=== PATIENT | female | born 1940 | race Two or more races ===

== ENCOUNTER 2023-05-11 13:28 | Inpatient (IN) | payer MEDICARE, MEDICAID ==
[2023-05-11] VITALS (8 sets, daily range): BP systolic 92–130; BP diastolic 57–69; PULSE 99–148; RESP 18–27; O2SAT 90–98
[~2023-05-11] VITALS: Ht 157.5 cm; Wt 62.4 kg
[2023-05-11 14:30] LABS: Base Excess -5.8 mmol/L (-2.0-2.0)
[2023-05-11 14:30] LABS: Red Cell Distribution Width 14.1 % (11.8-14.3)
[2023-05-11] MEDS ORDERED: MIDAZOLAM DRIP 50 mg/50mL 50 ML IV ONE (14:32)
[2023-05-11] MEDS ORDERED: ETOMIDATE (2MG/ML) 20ML VIAL IV ONE ×2 (14:32→14:45)
[2023-05-11 14:33] LABS: Hematocrit 43.8 % (36.0-46.0); Hemoglobin 13.9 g/dL (12.2-16.2); Mean Corpuscular Hemoglobin 27.4 pg (28.0-32.0); Mean Corpuscular Hgb Conc. 31.7 g/dL (32.0-36.0); Mean Corpuscular Volume 86.4 fL (80.0-100.0); Red Blood Cells 5.07 10^6/uL (4.0-5.20); White Blood Cell 6.3 10^3/uL (4.4-10.8)
[2023-05-11] MEDS ORDERED: ROCURONIUM 10MG/ML 10ML VIAL IV ONE ×2 (14:33→14:45)
[2023-05-11 14:37] LABS: Basophils % (manual) 0 (0.0-2.0); Blast Cells 0; Eosinophils % (manual) 0 (0-7); Promyelocytes % 0; Reactive Lymphocytes 0
[2023-05-11] MEDS: MIDAZOLAM DRIP 50 mg/50mL 50 ML IV SCH ×2 (14:45→21:33)
[2023-05-11] MEDS ORDERED: AZITHROMYCIN 500MG/ 250ML 250 ML IV ONE ×2 (14:45)
[2023-05-11] MEDS ORDERED: cefTRIAXone 1GM/50ML D5W 50 ML IV ONE ×2 (14:45)
[2023-05-11] MEDS ORDERED: SODIUM CHLORIDE 0.9% 1,000 ML IV ONE ×3 (14:45)
[2023-05-11 14:51] LABS: Alanine Aminotransferase 35 U/L (7-40); Albumin 3.5 g/dL (3.2-4.8); Alkaline Phosphatase 88 U/L (46-116); Anion Gap 16 (5-15); Aspartate Aminotransferase 58 U/L (13-40); BUN/Creatinine Ratio 16.5 (10.0-20.0); Bilirubin, Total 0.7 mg/dL (0.2-1.0); Blood Urea Nitrogen 39 mg/dL (9-23); Carbon Dioxide 20 mmol/L (20-30); Chloride 110 mmol/L (98-107); Glucose 134 mg/dL (74-106); Potassium 4.1 mmol/L (3.5-5.1); Sodium 146 mmol/L (136-145)
[2023-05-11 14:51] LABS: Lactic Acid w/Reflex 8.7 mmol/L (0.4-2.0)
[2023-05-11 14:52] LABS: Total Protein 6.4 g/dL (5.7-8.2)
[2023-05-11] MEDS: NOREPINEPHRINE 8 MG/250ML KIT 250 ML IV SCH (15:00)
[2023-05-11 15:09] LABS: INR 1.09 (0.9-1.15); Prothrombin Time 11.4 sec (9.3-11.8)
[2023-05-11 15:12] LABS: Band Neutrophils % (manual) 16; Lymphocytes % (manual) 7 (10.0-50.0); Metamyelocytes % 2; Monocytes % (manual) 3 (0-12); Myelocytes % 1
[2023-05-11 15:13] LABS: Hypochromia Slight
[2023-05-11 15:14] LABS: Platelet Estimate Adequate
[2023-05-11 15:22] LABS: Urine Epithelial Cast None Seen /hpf (<5)
[2023-05-11 15:36] LABS: Urine Bacteria MANY /hpf (None Seen); Urine Blood TRACE /uL (Negative); Urine Budding Yeast LOADED /hpf (None Seen); Urine Clarity HAZY (Clear); Urine Color Yellow (Yellow); Urine Mucus FEW (None Seen); Urine Protein, UAD 1+ (Negative); Urine Specific Gravity 1.018 (1.001-1.035); Urine Urobilinogen Normal (Negative); Urine WBC 18 /hpf (0 - 5); Urine pH 5.5 (5.0-8.0)
[2023-05-11 16:25] LABS: Base Excess -10.2 mmol/L (-2.0-2.0)
[2023-05-11] MEDS ORDERED: METOPROLOL TARTRATE 1MG/1ML-5ML VIAL IV ONE (16:30)
[2023-05-11] MEDS ORDERED: NITROGLYCERIN 0.4 MG SL TAB SL PRN (18:15)
[2023-05-11] MEDS ORDERED: MORPHINE SULFATE INJ 2 MG/ml SYRG IV PRN (18:15)
[2023-05-11] MEDS ORDERED: ONDANSETRON HCL 4 MG/2 ML VIAL IV PRN (18:15)
[2023-05-11 18:21] LABS: Base Excess -6.2 mmol/L (-2.0-2.0)
[2023-05-11] MEDS: VASOPRESSIN 20 UNITS in SODIUM CHL 0.9% 99 ML IV SCH (19:33)
[2023-05-11] MEDS: SODIUM BICARBONATE 50ML VIAL 50 ML in SOD CHL 0.45% 1,000 ML IV SCH (19:33)
[2023-05-11] MEDS: ACETAMINOPHEN 325 MG TAB PO PRN (21:29)
[2023-05-11] MEDS ORDERED: MEROPENEM 500MG IVPB 50 ML IV SCH (22:00)
[2023-05-11] MEDS: LINEZOLID 600MG/300ML 300 ML IV SCH (22:04)
[2023-05-11] MEDS: HYDROCORTISONE SOD SUCC 100 MG/2ML INJ VIAL IV SCH (22:04)
[2023-05-11] MEDS: BUDESONIDE (INHALATION) 0.5 MG/2 ML NEB NEB SCH (22:31)
[2023-05-12] VITALS (12 sets, daily range): BP systolic 81–132; BP diastolic 49–71; PULSE 106–173; RESP 20–31; O2SAT 91–97
[2023-05-12 00:57] LABS: COVID19 ANTIGEN SOFIA FIA NEGATIVE (NEGATIVE)
[2023-05-12 01:07] LABS: Rapid Influenza A Positive (Negative); Rapid Influenza B Negative (Negative)
[2023-05-12 04:47] LABS: Chloride 115 mmol/L (98-107); Potassium 3.7 mmol/L (3.5-5.1); Sodium 146 mmol/L (136-145)
[2023-05-12 04:48] LABS: Anion Gap 10 (5-15); Calcium 7.8 mg/dL (8.7-10.4); Carbon Dioxide 21 mmol/L (20-30)
[2023-05-12 04:53] LABS: Blood Urea Nitrogen 32 mg/dL (9-23); Glucose 124 mg/dL (74-106)
[2023-05-12] MEDS ORDERED: SODIUM BICARBONATE 8.4 % INJ 50ML VIAL IV ONE (04:53)
[2023-05-12 05:07] LABS: Hematocrit 41.9 % (36.0-46.0); Hemoglobin 13.3 g/dL (12.2-16.2); Mean Corpuscular Hemoglobin 27.3 pg (28.0-32.0); Mean Corpuscular Hgb Conc. 31.7 g/dL (32.0-36.0); Mean Corpuscular Volume 86.2 fL (80.0-100.0); Red Blood Cells 4.86 10^6/uL (4.0-5.20); White Blood Cell 5.9 10^3/uL (4.4-10.8)
[2023-05-12] MEDS: SODIUM BICARBONATE 50ML VIAL 50 ML in SOD CHL 0.45% 1,000 ML IV SCH (05:31)
[2023-05-12 05:34] LABS: Basophils % (manual) 0 (0.0-2.0); Blast Cells 0; Eosinophils % (manual) 0 (0-7); Myelocytes % 0; Promyelocytes % 0; Reactive Lymphocytes 0
[2023-05-12] MEDS: IPRATROPIUM BROM 0.5 MG/2.5ML INH SOL NEB SCH ×3 (05:35→19:03)
[2023-05-12] MEDS: VASOPRESSIN 20 UNITS in SODIUM CHL 0.9% 99 ML IV SCH ×2 (05:37→15:04)
[2023-05-12] MEDS ORDERED: dilTIAZem 25 MG/5 ML VIAL IV ONE ×2 (05:41→05:45)
[2023-05-12] MEDS: NOREPINEPHRINE 8 MG/250ML KIT 250 ML IV SCH ×2 (05:49→18:21)
[2023-05-12] MEDS: MIDAZOLAM DRIP 50 mg/50mL 50 ML IV SCH ×3 (05:50→18:21)
[2023-05-12] MEDS ORDERED: ALBUTEROL SULF 2.5 MG/0.5ML(0.5%) NEB SOLN NEB SCH (06:00)
[2023-05-12] MEDS ORDERED: dilTIAZem 125mg/125ml BAG KIT 125 ML IV ONE (06:12)
[2023-05-12] MEDS ORDERED: dilTIAZem 125mg/125ml BAG KIT 125 ML IV SCH (06:15)
[2023-05-12 07:43] LABS: Base Excess -2.7 mmol/L (-2.0-2.0)
[2023-05-12] MEDS ORDERED: fentaNYL Drip 2500mCg/250mlNS 250 ML IV ONE (08:12)
[2023-05-12 08:28] LABS: Band Neutrophils % (manual) 12; Lymphocytes % (manual) 7 (10.0-50.0); Metamyelocytes % 1; Monocytes % (manual) 3 (0-12); Platelet Estimate Adequate
[2023-05-12 08:29] LABS: Hypochromia Slight
[2023-05-12] MEDS: fentaNYL Drip 2500mCg/250mlNS 250 ML IV SCH ×2 (08:30→22:33)
[2023-05-12] MEDS ORDERED: AMIODARONE BOLUS KIT 100 ML IV ONE (08:45)
[2023-05-12] MEDS ORDERED: AMIODARONE 450mg/250ml AE 250 ML IV SCH (09:00)
[2023-05-12] MEDS: LACTATED RINGER'S 1,000 ML IV SCH ×2 (10:03→22:13)
[2023-05-12] MEDS: HYDROCORTISONE SOD SUCC 100 MG/2ML INJ VIAL IV SCH ×2 (10:33→22:14)
[2023-05-12] MEDS: LINEZOLID 600MG/300ML 300 ML IV SCH ×2 (10:36→22:14)
[2023-05-12] MEDS: LEVALBUTEROL HCL 1.25 MG/3 ML NEB NEB SCH ×2 (11:21→19:03)
[2023-05-12] MEDS: BUDESONIDE (INHALATION) 0.5 MG/2 ML NEB NEB SCH ×2 (11:21→19:03)
[2023-05-12] MEDS ORDERED: MEROPENEM 500MG IVPB 50 ML IV SCH (12:00)
[2023-05-12] MEDS: MEROPENEM 1GM IVPB 100 ML IV SCH (12:47)
[2023-05-12] MEDS: ASPirin 81 mg TAB PO SCH (14:14)
[2023-05-12 14:46] LABS: Magnesium 1.7 mg/dL (1.6-2.6)
[2023-05-12] MEDS: AMIODARONE 450mg/250ml AE 250 ML IV SCH ×2 (15:03→22:12)
[2023-05-12] MEDS: ACETAMINOPHEN 325 MG TAB PO PRN (22:56)
[2023-05-13] VITALS (30 sets, daily range): BP systolic 80–130; BP diastolic 51–73; PULSE 102–138; RESP 20–22; TEMP 98.2–99.1; O2SAT 96–100
[2023-05-13] MEDS: MEROPENEM 1GM IVPB 100 ML IV SCH ×2 (00:41→11:52)
[2023-05-13] MEDS: IPRATROPIUM BROM 0.5 MG/2.5ML INH SOL NEB SCH ×4 (02:40→21:18)
[2023-05-13] MEDS: LEVALBUTEROL HCL 1.25 MG/3 ML NEB NEB SCH ×4 (02:40→21:18)
[2023-05-13] MEDS: VASOPRESSIN 20 UNITS in SODIUM CHL 0.9% 99 ML IV SCH ×2 (03:51→12:18)
[2023-05-13 04:24] LABS: Hematocrit 37.5 % (36.0-46.0); Mean Corpuscular Hemoglobin 27.3 pg (28.0-32.0); Mean Corpuscular Volume 85.2 fL (80.0-100.0); Red Cell Distribution Width 14.3 % (11.8-14.3); White Blood Cell 10.6 10^3/uL (4.4-10.8)
[2023-05-13 04:33] LABS: Anion Gap 9 (5-15); Carbon Dioxide 24 mmol/L (20-30); Chloride 109 mmol/L (98-107); Potassium 3.9 mmol/L (3.5-5.1); Sodium 142 mmol/L (136-145)
[2023-05-13 04:39] LABS: BUN/Creatinine Ratio 27.9 (10.0-20.0); Blood Urea Nitrogen 31 mg/dL (9-23); Glucose 137 mg/dL (74-106)
[2023-05-13 04:43] LABS: Basophils % (manual) 0 (0.0-2.0); Blast Cells 0; Eosinophils % (manual) 0 (0-7); Metamyelocytes % 0; Myelocytes % 0; Promyelocytes % 0; Reactive Lymphocytes 0
[2023-05-13] MEDS: LACTATED RINGER'S 1,000 ML IV SCH ×4 (04:45→21:06)
[2023-05-13] MEDS: BUDESONIDE (INHALATION) 0.5 MG/2 ML NEB NEB SCH ×2 (05:51→21:18)
[2023-05-13] MEDS: MIDAZOLAM DRIP 50 mg/50mL 50 ML IV SCH ×2 (06:08→16:07)
[2023-05-13 06:09] LABS: Base Excess -2.5 mmol/L (-2.0-2.0)
[2023-05-13 09:15] LABS: Band Neutrophils % (manual) 8; Lymphocytes % (manual) 2 (10.0-50.0); Monocytes % (manual) 2 (0-12)
[2023-05-13 09:16] LABS: Platelet Estimate Adequate
[2023-05-13] MEDS: ASPirin 81 mg TAB PO SCH (09:47)
[2023-05-13] MEDS: HYDROCORTISONE SOD SUCC 100 MG/2ML INJ VIAL IV SCH ×2 (09:47→22:14)
[2023-05-13] MEDS: LINEZOLID 600MG/300ML 300 ML IV SCH ×2 (09:47→22:16)
[2023-05-13] MEDS: AMIODARONE 450mg/250ml AE 250 ML IV SCH (09:48)
[2023-05-13] MEDS: NOREPINEPHRINE 8 MG/250ML KIT 250 ML IV SCH (09:48)
[2023-05-13] MEDS: Jevity 1.2 Cal/Fiber 1 Liter GT SCH (15:50)
[2023-05-13] MEDS: MAGNESIUM SULFATE 1GM/100ML 100 ML IV SCH ×2 (16:28→17:10)
[2023-05-13] MEDS: POTASSIUM CHL 20MEQ/100ML 100 ML IV SCH ×2 (16:28→18:31)
[2023-05-13] MEDS: FREE WATER GT SCH ×2 (18:07→23:38)
[2023-05-13] MEDS ORDERED: OSELTAMIVIR 75 MG CAP PO ONE (22:00)
[2023-05-13] MEDS: fentaNYL Drip 2500mCg/250mlNS 250 ML IV SCH (23:36)
[2023-05-14] VITALS (105 sets, daily range): BP systolic 87–141; BP diastolic 49–82; PULSE 87–133; RESP 17–26; TEMP 98.1–99; O2SAT 95–99
[2023-05-14] MEDS: LEVALBUTEROL HCL 1.25 MG/3 ML NEB NEB SCH ×4 (00:29→18:25)
[2023-05-14] MEDS: AMIODARONE 450mg/250ml AE 250 ML IV SCH ×2 (01:01→16:23)
[2023-05-14] MEDS: VASOPRESSIN 20 UNITS in SODIUM CHL 0.9% 99 ML IV SCH ×3 (02:05→23:55)
[2023-05-14 04:11] LABS: Hemoglobin 11.4 g/dL (12.2-16.2); Red Cell Distribution Width 14.3 % (11.8-14.3)
[2023-05-14 04:14] LABS: Hematocrit 35.6 % (36.0-46.0); Mean Corpuscular Hemoglobin 26.7 pg (28.0-32.0); Mean Corpuscular Volume 83.5 fL (80.0-100.0); Red Blood Cells 4.26 10^6/uL (4.0-5.20); White Blood Cell 15.4 10^3/uL (4.4-10.8)
[2023-05-14] MEDS: MIDAZOLAM DRIP 50 mg/50mL 50 ML IV SCH ×2 (04:25→13:01)
[2023-05-14 04:29] LABS: Anion Gap 8 (5-15); Calcium 8.3 mg/dL (8.7-10.4); Carbon Dioxide 24 mmol/L (20-30); Chloride 108 mmol/L (98-107); Potassium 4.7 mmol/L (3.5-5.1); Sodium 140 mmol/L (136-145)
[2023-05-14 04:35] LABS: BUN/Creatinine Ratio 30.4 (10.0-20.0); Blood Urea Nitrogen 28 mg/dL (9-23); Glucose 162 mg/dL (74-106); Magnesium 2.3 mg/dL (1.6-2.6)
[2023-05-14 04:52] LABS: Band Neutrophils % (manual) 0; Basophils % (manual) 0 (0.0-2.0); Blast Cells 0; Eosinophils % (manual) 0 (0-7); Lymphocytes % (manual) 0 (10.0-50.0); Metamyelocytes % 0; Myelocytes % 0; Promyelocytes % 0; Reactive Lymphocytes 0
[2023-05-14] MEDS: FREE WATER GT SCH (05:45)
[2023-05-14] MEDS: BUDESONIDE (INHALATION) 0.5 MG/2 ML NEB NEB SCH ×2 (06:25→18:25)
[2023-05-14] MEDS: IPRATROPIUM BROM 0.5 MG/2.5ML INH SOL NEB SCH ×3 (06:25→18:25)
[2023-05-14 08:06] LABS: Base Excess -2.5 mmol/L (-2.0-2.0)
[2023-05-14] MEDS: ASPirin 81 mg TAB PO SCH (09:11)
[2023-05-14] MEDS: LINEZOLID 600MG/300ML 300 ML IV SCH (09:11)
[2023-05-14] MEDS: OSELTAMIVIR 30 MG CAP PO SCH ×2 (09:11→22:27)
[2023-05-14] MEDS: HYDROCORTISONE SOD SUCC 100 MG/2ML INJ VIAL IV SCH (09:12)
[2023-05-14 09:28] LABS: Monocytes % (manual) 1 (0-12); Platelet Estimate Adequate
[2023-05-14] MEDS: NOREPINEPHRINE 8 MG/250ML KIT 250 ML IV SCH (15:00)
[2023-05-14] MEDS ORDERED: VANCOMYCIN PER PHARMACY 0 MG IV SCH (16:00)
[2023-05-14] MEDS ORDERED: CEFTRIAXONE SODIUM 2 GM in D5W 5% 100 ML IV ONE (16:00)
[2023-05-14] MEDS ORDERED: PANTOPRAZOLE 40 MG/10 ML VIAL INJ IV ONE (16:15)
[2023-05-14] MEDS ORDERED: VANCOMYCIN 1GM/200ML 200 ML IV ONE (16:15)
[2023-05-14] MEDS: MUPIROCIN 2% OINT 15gm or 22gm FOR MRSA NARES EACHNOSTRI SCH (22:26)
[2023-05-14] MEDS: LACTATED RINGER'S 1,000 ML IV SCH (22:27)
[2023-05-15] VITALS (93 sets, daily range): BP systolic 72–154; BP diastolic 45–93; PULSE 79–103; RESP 15–28; TEMP 97–100; O2SAT 92–100
[2023-05-15] MEDS: LEVALBUTEROL HCL 1.25 MG/3 ML NEB NEB SCH ×5 (00:09→23:45)
[2023-05-15] MEDS: IPRATROPIUM BROM 0.5 MG/2.5ML INH SOL NEB SCH ×4 (00:10→23:45)
[2023-05-15] MEDS: fentaNYL Drip 2500mCg/250mlNS 250 ML IV SCH ×2 (01:30→22:43)
[2023-05-15] MEDS: MIDAZOLAM DRIP 50 mg/50mL 50 ML IV SCH (04:15)
[2023-05-15 04:21] LABS: Chloride 109 mmol/L (98-107); Potassium 4.9 mmol/L (3.5-5.1); Sodium 141 mmol/L (136-145)
[2023-05-15 04:22] LABS: Anion Gap 7 (5-15); Calcium 8.5 mg/dL (8.7-10.4); Carbon Dioxide 25 mmol/L (20-30)
[2023-05-15 04:27] LABS: Hematocrit 35.2 % (36.0-46.0); Hemoglobin 11.1 g/dL (12.2-16.2); Mean Corpuscular Hemoglobin 26.6 pg (28.0-32.0); Mean Corpuscular Hgb Conc. 31.6 g/dL (32.0-36.0); Mean Corpuscular Volume 84.1 fL (80.0-100.0); Red Blood Cells 4.18 10^6/uL (4.0-5.20); Red Cell Distribution Width 14.7 % (11.8-14.3); White Blood Cell 18.1 10^3/uL (4.4-10.8)
[2023-05-15 04:28] LABS: BUN/Creatinine Ratio 35.2 (10.0-20.0); Blood Urea Nitrogen 25 mg/dL (9-23); Glucose 148 mg/dL (74-106)
[2023-05-15 04:29] LABS: Basophils % (manual) 0 (0.0-2.0); Blast Cells 0; Eosinophils % (manual) 0 (0-7); Metamyelocytes % 0; Myelocytes % 0; Promyelocytes % 0; Reactive Lymphocytes 0
[2023-05-15] MEDS: BUDESONIDE (INHALATION) 0.5 MG/2 ML NEB NEB SCH ×2 (06:30→18:28)
[2023-05-15 07:01] LABS: Band Neutrophils % (manual) 6; Lymphocytes % (manual) 2 (10.0-50.0); Monocytes % (manual) 1 (0-12)
[2023-05-15 07:02] LABS: Platelet Estimate Adequate; RBC Morphology Normal
[2023-05-15 07:39] LABS: Base Excess 0.2 mmol/L (-2.0-2.0)
[2023-05-15] MEDS ORDERED: VANCOMYCIN 1GM/200ML 200 ML IV SCH ×2 (08:00→14:30)
[2023-05-15] MEDS: PANTOPRAZOLE 40 MG/10 ML VIAL INJ IV SCH (08:45)
[2023-05-15] MEDS: MUPIROCIN 2% OINT 15gm or 22gm FOR MRSA NARES EACHNOSTRI SCH ×2 (09:07→21:19)
[2023-05-15] MEDS: OSELTAMIVIR 30 MG CAP PO SCH ×2 (09:09→21:03)
[2023-05-15] MEDS: AMIODARONE HCL 200 MG TAB PO SCH ×2 (09:10→21:03)
[2023-05-15] MEDS ORDERED: CEFTRIAXONE SODIUM 2 GM in D5W 5% 100 ML IV SCH (10:00)
[2023-05-15] MEDS ORDERED: ENOXAPARIN SOD 30 MG/0.3 ML SYRINGE SC SCH (10:00)
[2023-05-15] MEDS ORDERED: CEFEPIME 1GM/ 50ML 50 ML IV SCH (11:00)
[2023-05-15] MEDS: CEFEPIME 1GM/ 50ML 50 ML IV SCH ×2 (14:00→21:05)
[2023-05-15] MEDS: LACTATED RINGER'S 1,000 ML IV SCH (15:00)
[2023-05-15] MEDS: NOREPINEPHRINE 8 MG/250ML KIT 250 ML IV SCH (15:00)
[2023-05-15] MEDS: ENOXAPARIN SOD 60 MG/0.6 ML SYRINGE SC SCH (21:02)
[2023-05-15] MEDS: VANCOMYCIN 1GM/200ML 200 ML IV SCH (21:03)
[2023-05-15] MEDS: VASOPRESSIN 20 UNITS in SODIUM CHL 0.9% 99 ML IV SCH (22:33)
[2023-05-16] VITALS (107 sets, daily range): BP systolic 84–135; BP diastolic 47–70; PULSE 92–109; RESP 16–28; TEMP 98.4–99.9; O2SAT 6–100
[2023-05-16] MEDS: MIDAZOLAM DRIP 50 mg/50mL 50 ML IV SCH ×2 (01:50→09:44)
[2023-05-16] MEDS: CEFEPIME 1GM/ 50ML 50 ML IV SCH ×3 (06:06→21:02)
[2023-05-16 07:09] LABS: Chloride 111 mmol/L (98-107); Potassium 4.7 mmol/L (3.5-5.1); Sodium 143 mmol/L (136-145)
[2023-05-16 07:10] LABS: Anion Gap 3 (5-15); Calcium 8.5 mg/dL (8.7-10.4); Carbon Dioxide 29 mmol/L (20-30)
[2023-05-16 07:14] LABS: Hematocrit 35.1 % (36.0-46.0); Hemoglobin 11.2 g/dL (12.2-16.2); Mean Corpuscular Volume 84.5 fL (80.0-100.0); Red Blood Cells 4.16 10^6/uL (4.0-5.20); Red Cell Distribution Width 14.7 % (11.8-14.3)
[2023-05-16 07:15] LABS: BUN/Creatinine Ratio 32.8 (10.0-20.0); Blood Urea Nitrogen 20 mg/dL (9-23); Glucose 98 mg/dL (74-106)
[2023-05-16 07:24] LABS: Basophils % (manual) 0 (0.0-2.0); Blast Cells 0; Eosinophils % (manual) 0 (0-7); Metamyelocytes % 0; Myelocytes % 0; Promyelocytes % 0; Reactive Lymphocytes 0
[2023-05-16] MEDS: LACTATED RINGER'S 1,000 ML IV SCH (07:40)
[2023-05-16] MEDS: IPRATROPIUM BROM 0.5 MG/2.5ML INH SOL NEB SCH ×4 (07:40→23:55)
[2023-05-16] MEDS: BUDESONIDE (INHALATION) 0.5 MG/2 ML NEB NEB SCH ×2 (07:40→18:01)
[2023-05-16] MEDS: LEVALBUTEROL HCL 1.25 MG/3 ML NEB NEB SCH ×4 (07:40→23:55)
[2023-05-16] MEDS: VANCOMYCIN 1GM/200ML 200 ML IV SCH ×2 (08:09→20:00)
[2023-05-16] MEDS: NOREPINEPHRINE 8 MG/250ML KIT 250 ML IV SCH (08:34)
[2023-05-16 08:58] LABS: Base Excess -0.9 mmol/L (-2.0-2.0)
[2023-05-16 09:33] LABS: Band Neutrophils % (manual) 20; Lymphocytes % (manual) 7 (10.0-50.0); Monocytes % (manual) 4 (0-12); Platelet Estimate Adequate
[2023-05-16] MEDS: VASOPRESSIN 20 UNITS in SODIUM CHL 0.9% 99 ML IV SCH ×2 (09:40→20:47)
[2023-05-16] MEDS: PANTOPRAZOLE 40 MG/10 ML VIAL INJ IV SCH (10:15)
[2023-05-16] MEDS: ENOXAPARIN SOD 60 MG/0.6 ML SYRINGE SC SCH ×2 (10:15→21:03)
[2023-05-16] MEDS: AMIODARONE HCL 200 MG TAB PO SCH ×2 (10:16→21:03)
[2023-05-16] MEDS: OSELTAMIVIR 30 MG CAP PO SCH ×2 (10:16→21:02)
[2023-05-16] MEDS: MUPIROCIN 2% OINT 15gm or 22gm FOR MRSA NARES EACHNOSTRI SCH ×2 (10:18→21:02)
[2023-05-16] MEDS: fentaNYL Drip 2500mCg/250mlNS 250 ML IV SCH (12:23)
[2023-05-16 13:50] LABS: INR 1.07 (0.9-1.15); Prothrombin Time 11.2 sec (9.3-11.8)
[2023-05-16] MEDS: FLUCONAZOLE 200MG/100ML 100 ML IV SCH (21:01)
[2023-05-17] VITALS (103 sets, daily range): BP systolic 85–136; BP diastolic 39–69; PULSE 75–114; RESP 20–29; TEMP 98.6–100; O2SAT 89–100
[2023-05-17 04:12] LABS: Basophils # (auto) 0 10 ^3/uL (0-0.2); Eosinophils # (auto) 0.1 10 ^3/uL (0-0.8); Eosinophils % (auto) 0.4 % (0.0-7.0); Hemoglobin 10.4 g/dL (12.2-16.2); Lymphocytes # (auto) 0.4 10 ^3/uL (0.4-5.4); Monocytes # (auto) 0.4 10 ^3/uL (0-1.3); Nucleated Red Blood Cells % 0.1 %
[2023-05-17 04:15] LABS: Lymphocytes % (auto) 3.3 % (10.0-50.0); Mean Corpuscular Hemoglobin 26.8 pg (28.0-32.0); Mean Corpuscular Hgb Conc. 32.3 g/dL (32.0-36.0); Mean Corpuscular Volume 82.9 fL (80.0-100.0); Neutrophils # (auto) 11.7 10 ^3/uL (1.6-8.6); Neutrophils % (auto) 93.3 % (37.0-80.0); Red Blood Cells 3.86 10^6/uL (4.0-5.20); Red Cell Distribution Width 14.1 % (11.8-14.3); White Blood Cell 12.5 10^3/uL (4.4-10.8)
[2023-05-17 04:25] LABS: Chloride 112 mmol/L (98-107); Potassium 4.6 mmol/L (3.5-5.1); Sodium 145 mmol/L (136-145)
[2023-05-17 04:26] LABS: Anion Gap 5 (5-15); Calcium 8.2 mg/dL (8.7-10.4); Carbon Dioxide 28 mmol/L (20-30)
[2023-05-17 04:31] LABS: BUN/Creatinine Ratio 39.6 (10.0-20.0); Blood Urea Nitrogen 19 mg/dL (9-23); Glucose 161 mg/dL (74-106)
[2023-05-17] MEDS: Jevity 1.2 Cal/Fiber 1 Liter GT SCH (05:53)
[2023-05-17] MEDS: CEFEPIME 1GM/ 50ML 50 ML IV SCH ×3 (05:53→22:01)
[2023-05-17] MEDS: BUDESONIDE (INHALATION) 0.5 MG/2 ML NEB NEB SCH ×2 (07:01→18:53)
[2023-05-17] MEDS: LEVALBUTEROL HCL 1.25 MG/3 ML NEB NEB SCH ×3 (07:01→18:53)
[2023-05-17] MEDS: IPRATROPIUM BROM 0.5 MG/2.5ML INH SOL NEB SCH ×3 (07:01→18:53)
[2023-05-17] MEDS: VASOPRESSIN 20 UNITS in SODIUM CHL 0.9% 99 ML IV SCH ×2 (07:54→19:01)
[2023-05-17] MEDS: MIDAZOLAM DRIP 50 mg/50mL 50 ML IV SCH ×3 (09:04→21:01)
[2023-05-17] MEDS: PANTOPRAZOLE 40 MG/10 ML VIAL INJ IV SCH (11:06)
[2023-05-17] MEDS: OSELTAMIVIR 30 MG CAP PO SCH ×2 (11:07→22:01)
[2023-05-17] MEDS: ENOXAPARIN SOD 60 MG/0.6 ML SYRINGE SC SCH ×2 (11:07→22:01)
[2023-05-17] MEDS: AMIODARONE HCL 200 MG TAB PO SCH ×2 (11:08→22:01)
[2023-05-17] MEDS: FLUCONAZOLE 200MG/100ML 100 ML IV SCH (11:09)
[2023-05-17] MEDS: MUPIROCIN 2% OINT 15gm or 22gm FOR MRSA NARES EACHNOSTRI SCH ×2 (11:11→22:03)
[2023-05-17] MEDS ORDERED: LIDOCAINE 1% (LOCAL ANESTH.) PF 5ml SDV ID ONE (12:00)
[2023-05-17] MEDS: NOREPINEPHRINE 8 MG/250ML KIT 250 ML IV SCH (12:48)
[2023-05-17] MEDS: VANCOMYCIN 1GM/200ML 200 ML IV SCH (12:49)
[2023-05-17] MEDS: fentaNYL Drip 2500mCg/250mlNS 250 ML IV SCH (13:00)
[2023-05-17] MEDS: SODIUM CHLOR 0.9% PF (SALINE LOCK) 10ML VIAL/SYR IV SCH (22:01)
[2023-05-18] VITALS (106 sets, daily range): BP systolic 88–131; BP diastolic 46–71; PULSE 92–118; RESP 25–33; TEMP 97.5–99.3; O2SAT 87–100
[2023-05-18] MEDS: IPRATROPIUM BROM 0.5 MG/2.5ML INH SOL NEB SCH ×4 (01:18→18:22)
[2023-05-18] MEDS: LEVALBUTEROL HCL 1.25 MG/3 ML NEB NEB SCH ×4 (01:19→18:22)
[2023-05-18] MEDS: fentaNYL Drip 2500mCg/250mlNS 250 ML IV SCH ×2 (02:23→12:21)
[2023-05-18 03:55] LABS: Basophils # (auto) 0 10 ^3/uL (0-0.2); Eosinophils # (auto) 0.1 10 ^3/uL (0-0.8); Hematocrit 31.3 % (36.0-46.0); Mean Corpuscular Volume 83.3 fL (80.0-100.0)
[2023-05-18 03:57] LABS: Eosinophils % (auto) 0.7 % (0.0-7.0); Hemoglobin 9.9 g/dL (12.2-16.2); Lymphocytes # (auto) 0.6 10 ^3/uL (0.4-5.4); Lymphocytes % (auto) 3.9 % (10.0-50.0); Mean Corpuscular Hemoglobin 26.5 pg (28.0-32.0); Mean Corpuscular Hgb Conc. 31.8 g/dL (32.0-36.0); Monocytes # (auto) 0.5 10 ^3/uL (0-1.3); Monocytes % (auto) 3.2 % (0.0-12.0); Neutrophils % (auto) 92.2 % (37.0-80.0); Nucleated Red Blood Cells % 0.1 %; Red Blood Cells 3.75 10^6/uL (4.0-5.20); Red Cell Distribution Width 14.2 % (11.8-14.3); White Blood Cell 14.1 10^3/uL (4.4-10.8)
[2023-05-18 04:12] LABS: Alanine Aminotransferase 61 U/L (7-40); Albumin 2.2 g/dL (3.2-4.8); Alkaline Phosphatase 192 U/L (46-116); Anion Gap 4 (5-15); Aspartate Aminotransferase 52 U/L (13-40); BUN/Creatinine Ratio 39.5 (10.0-20.0); Bilirubin, Total 0.5 mg/dL (0.2-1.0); Blood Urea Nitrogen 15 mg/dL (9-23); Calcium 8.1 mg/dL (8.7-10.4); Carbon Dioxide 30 mmol/L (20-30); Chloride 111 mmol/L (98-107); Glucose 91 mg/dL (74-106); Potassium 4.3 mmol/L (3.5-5.1); Sodium 145 mmol/L (136-145); Total Protein 4.6 g/dL (5.7-8.2)
[2023-05-18] MEDS: VANCOMYCIN 1GM/200ML 200 ML IV SCH ×2 (05:30→21:26)
[2023-05-18] MEDS: CEFEPIME 1GM/ 50ML 50 ML IV SCH ×3 (06:00→21:26)
[2023-05-18] MEDS: VASOPRESSIN 20 UNITS in SODIUM CHL 0.9% 99 ML IV SCH ×2 (06:08→16:04)
[2023-05-18] MEDS: MIDAZOLAM DRIP 50 mg/50mL 50 ML IV SCH ×2 (06:35→12:20)
[2023-05-18] MEDS: BUDESONIDE (INHALATION) 0.5 MG/2 ML NEB NEB SCH ×2 (06:52→18:22)
[2023-05-18 07:49] LABS: Base Excess 4.6 mmol/L (-2.0-2.0)
[2023-05-18] MEDS: SODIUM CHLOR 0.9% PF (SALINE LOCK) 10ML VIAL/SYR IV SCH ×2 (10:00→21:14)
[2023-05-18] MEDS: OSELTAMIVIR 30 MG CAP PO SCH (10:32)
[2023-05-18] MEDS: MUPIROCIN 2% OINT 15gm or 22gm FOR MRSA NARES EACHNOSTRI SCH ×2 (10:33→21:14)
[2023-05-18] MEDS: AMIODARONE HCL 200 MG TAB PO SCH ×2 (10:33→21:26)
[2023-05-18] MEDS: ENOXAPARIN SOD 60 MG/0.6 ML SYRINGE SC SCH ×2 (10:33→21:26)
[2023-05-18] MEDS: PANTOPRAZOLE 40 MG/10 ML VIAL INJ IV SCH (10:33)
[2023-05-18] MEDS: FLUCONAZOLE 200MG/100ML 100 ML IV SCH (10:34)
[2023-05-18] MEDS ORDERED: IPRATROPIUM BROM 0.5 MG/2.5ML INH SOL NEB ONE (14:30)
[2023-05-18] MEDS ORDERED: FUROSEMIDE 40 MG/4 ML VIAL IV ONE (14:30)
[2023-05-18] MEDS ORDERED: LEVALBUTEROL HCL 1.25 MG/3 ML NEB NEB ONE (14:30)
[2023-05-18] MEDS: NOREPINEPHRINE 8 MG/250ML KIT 250 ML IV SCH (15:00)
[2023-05-18] MEDS: PROPOFOL 100 ML IV SCH (16:30)
[2023-05-19] VITALS (108 sets, daily range): BP systolic 59–149; BP diastolic 35–77; PULSE 102–120; RESP 26; TEMP 96.8–99; O2SAT 94–100
[2023-05-19] MEDS: IPRATROPIUM BROM 0.5 MG/2.5ML INH SOL NEB SCH ×4 (00:10→18:52)
[2023-05-19] MEDS: LEVALBUTEROL HCL 1.25 MG/3 ML NEB NEB SCH ×4 (00:10→18:52)
[2023-05-19] MEDS: VASOPRESSIN 20 UNITS in SODIUM CHL 0.9% 99 ML IV SCH ×2 (01:26→15:29)
[2023-05-19 03:05] LABS: Basophils # (auto) 0 10 ^3/uL (0-0.2); Basophils % (auto) 0.2 % (0.0-2.0); Hemoglobin 9.6 g/dL (12.2-16.2); Neutrophils # (auto) 15.9 10 ^3/uL (1.6-8.6)
[2023-05-19 03:07] LABS: Eosinophils # (auto) 0.1 10 ^3/uL (0-0.8); Eosinophils % (auto) 0.7 % (0.0-7.0); Hematocrit 30.4 % (36.0-46.0); Lymphocytes # (auto) 0.9 10 ^3/uL (0.4-5.4); Lymphocytes % (auto) 4.8 % (10.0-50.0); Mean Corpuscular Hemoglobin 26.1 pg (28.0-32.0); Mean Corpuscular Hgb Conc. 31.6 g/dL (32.0-36.0); Mean Corpuscular Volume 82.7 fL (80.0-100.0); Monocytes # (auto) 0.7 10 ^3/uL (0-1.3); Neutrophils % (auto) 90.3 % (37.0-80.0); Nucleated Red Blood Cells % 0.3 %; Red Blood Cells 3.67 10^6/uL (4.0-5.20); White Blood Cell 17.6 10^3/uL (4.4-10.8)
[2023-05-19 03:23] LABS: Alanine Aminotransferase 52 U/L (7-40); Albumin 2.3 g/dL (3.2-4.8); Alkaline Phosphatase 168 U/L (46-116); Anion Gap 8 (5-15); Aspartate Aminotransferase 38 U/L (13-40); BUN/Creatinine Ratio 34.8 (10.0-20.0); Blood Urea Nitrogen 16 mg/dL (9-23); Carbon Dioxide 27 mmol/L (20-30); Chloride 109 mmol/L (98-107); Glucose 97 mg/dL (74-106); Potassium 3.8 mmol/L (3.5-5.1); Sodium 144 mmol/L (136-145)
[2023-05-19 03:24] LABS: Bilirubin, Total 0.5 mg/dL (0.2-1.0); Total Protein 4.9 g/dL (5.7-8.2)
[2023-05-19] MEDS: CEFEPIME 1GM/ 50ML 50 ML IV SCH ×3 (06:00→20:58)
[2023-05-19] MEDS: BUDESONIDE (INHALATION) 0.5 MG/2 ML NEB NEB SCH ×2 (06:26→18:52)
[2023-05-19 06:58] LABS: Base Excess 1.7 mmol/L (-2.0-2.0)
[2023-05-19] MEDS: MIDAZOLAM DRIP 50 mg/50mL 50 ML IV SCH ×2 (08:00→17:20)
[2023-05-19] MEDS: FLUCONAZOLE 200MG/100ML 100 ML IV SCH (10:10)
[2023-05-19] MEDS: PANTOPRAZOLE 40 MG/10 ML VIAL INJ IV SCH (10:10)
[2023-05-19] MEDS: AMIODARONE HCL 200 MG TAB PO SCH ×2 (10:10→20:59)
[2023-05-19] MEDS: MUPIROCIN 2% OINT 15gm or 22gm FOR MRSA NARES EACHNOSTRI SCH (10:10)
[2023-05-19] MEDS: SODIUM CHLOR 0.9% PF (SALINE LOCK) 10ML VIAL/SYR IV SCH ×2 (10:11→20:59)
[2023-05-19] MEDS: ENOXAPARIN SOD 60 MG/0.6 ML SYRINGE SC SCH ×2 (10:11→20:59)
[2023-05-19] MEDS ORDERED: POTASSIUM CHL 20MEQ/100ML 100 ML IV ONE (11:00)
[2023-05-19] MEDS ORDERED: FUROSEMIDE 40 MG/4 ML VIAL IV ONE ×2 (11:00→19:45)
[2023-05-19] MEDS: fentaNYL Drip 2500mCg/250mlNS 250 ML IV SCH (14:40)
[2023-05-19] MEDS: PROPOFOL 100 ML IV SCH (14:49)
[2023-05-19] MEDS: NOREPINEPHRINE 8 MG/250ML KIT 250 ML IV SCH ×2 (15:00→17:19)
[2023-05-19] MEDS ORDERED: VANCOMYCIN 1GM/200ML 200 ML IV SCH (18:00)
[2023-05-19] MEDS: methylPREDNISolone SOD SUCC 125 MG/2 ML VL IV SCH (20:59)
[2023-05-20] VITALS (113 sets, daily range): BP systolic 84–166; BP diastolic 52–87; PULSE 92–118; RESP 26; TEMP 96.4–99.1; O2SAT 94–100
[2023-05-20] MEDS: IPRATROPIUM BROM 0.5 MG/2.5ML INH SOL NEB SCH ×4 (00:47→18:40)
[2023-05-20] MEDS: LEVALBUTEROL HCL 1.25 MG/3 ML NEB NEB SCH ×4 (00:47→18:40)
[2023-05-20] MEDS: VASOPRESSIN 20 UNITS in SODIUM CHL 0.9% 99 ML IV SCH ×3 (02:01→23:03)
[2023-05-20 04:27] LABS: Hemoglobin 10.1 g/dL (12.2-16.2)
[2023-05-20 04:30] LABS: Hematocrit 31.8 % (36.0-46.0); Mean Corpuscular Hemoglobin 26.2 pg (28.0-32.0); Mean Corpuscular Hgb Conc. 31.6 g/dL (32.0-36.0); Mean Corpuscular Volume 82.9 fL (80.0-100.0); Red Blood Cells 3.84 10^6/uL (4.0-5.20); White Blood Cell 23.2 10^3/uL (4.4-10.8)
[2023-05-20 04:40] LABS: Basophils % (manual) 0 (0.0-2.0); Blast Cells 0; Eosinophils % (manual) 0 (0-7); Metamyelocytes % 0; Myelocytes % 0; Promyelocytes % 0; Reactive Lymphocytes 0
[2023-05-20 04:56] LABS: Alanine Aminotransferase 53 U/L (7-40); Albumin 2.4 g/dL (3.2-4.8); Alkaline Phosphatase 211 U/L (46-116); Anion Gap 9 (5-15); Aspartate Aminotransferase 33 U/L (13-40); BUN/Creatinine Ratio 31.7 (10.0-20.0); Blood Urea Nitrogen 19 mg/dL (9-23); Calcium 8.4 mg/dL (8.5-10.1); Carbon Dioxide 28 mmol/L (20-30); Chloride 107 mmol/L (98-107); Glucose 110 mg/dL (74-106); Potassium 4.4 mmol/L (3.5-5.1); Sodium 144 mmol/L (136-145)
[2023-05-20 04:57] LABS: Bilirubin, Total 0.3 mg/dL (0.2-1.0); Total Protein 5.6 g/dL (5.7-8.2)
[2023-05-20 05:38] LABS: Band Neutrophils % (manual) 2; Large Platelets FEW; Lymphocytes % (manual) 2 (10.0-50.0); Monocytes % (manual) 1 (0-12); Platelet Estimate Adequate
[2023-05-20] MEDS: methylPREDNISolone SOD SUCC 125 MG/2 ML VL IV SCH (06:24)
[2023-05-20] MEDS: CEFEPIME 1GM/ 50ML 50 ML IV SCH ×3 (06:24→20:54)
[2023-05-20] MEDS: BUDESONIDE (INHALATION) 0.5 MG/2 ML NEB NEB SCH ×2 (06:55→22:13)
[2023-05-20 07:21] LABS: Base Excess 2.2 mmol/L (-2.0-2.0)
[2023-05-20] MEDS: FLUCONAZOLE 200MG/100ML 100 ML IV SCH (10:35)
[2023-05-20] MEDS: PANTOPRAZOLE 40 MG/10 ML VIAL INJ IV SCH (10:35)
[2023-05-20] MEDS: ENOXAPARIN SOD 60 MG/0.6 ML SYRINGE SC SCH ×2 (10:36→20:54)
[2023-05-20] MEDS: SODIUM CHLOR 0.9% PF (SALINE LOCK) 10ML VIAL/SYR IV SCH ×2 (10:36→20:46)
[2023-05-20] MEDS: AMIODARONE HCL 200 MG TAB PO SCH ×2 (10:36→20:54)
[2023-05-20] MEDS ORDERED: FUROSEMIDE 40 MG/4 ML VIAL IV ONE (10:45)
[2023-05-20] MEDS ORDERED: MICAFUNGIN SODIUM 100 MG in SODIUM CHL 0.9% 100 ML IV ONE (12:00)
[2023-05-20] MEDS: LINEZOLID 600MG/300ML 300 ML IV SCH ×2 (12:37→20:54)
[2023-05-20] MEDS: MIDAZOLAM DRIP 50 mg/50mL 50 ML IV SCH (15:12)
[2023-05-20] MEDS: fentaNYL Drip 2500mCg/250mlNS 250 ML IV SCH (15:13)
[2023-05-20] MEDS: PROPOFOL 100 ML IV SCH (16:15)
[2023-05-20] MEDS: NOREPINEPHRINE 8 MG/250ML KIT 250 ML IV SCH (17:45)
[2023-05-21] VITALS (107 sets, daily range): BP systolic 91–141; BP diastolic 44–72; PULSE 87–103; RESP 22–36; TEMP 95.9–98.8; O2SAT 92–100
[2023-05-21] MEDS: LEVALBUTEROL HCL 1.25 MG/3 ML NEB NEB SCH ×4 (00:31→18:24)
[2023-05-21] MEDS: IPRATROPIUM BROM 0.5 MG/2.5ML INH SOL NEB SCH ×4 (00:31→18:24)
[2023-05-21 02:24] LABS: Basophils # (auto) 0 10 ^3/uL (0-0.2); Basophils % (auto) 0.1 % (0.0-2.0); Eosinophils # (auto) 0 10 ^3/uL (0-0.8)
[2023-05-21 02:25] LABS: Hematocrit 26.7 % (36.0-46.0); Hemoglobin 8.7 g/dL (12.2-16.2); Lymphocytes # (auto) 0.7 10 ^3/uL (0.4-5.4); Lymphocytes % (auto) 4.1 % (10.0-50.0); Mean Corpuscular Hemoglobin 26.8 pg (28.0-32.0); Mean Corpuscular Hgb Conc. 32.4 g/dL (32.0-36.0); Mean Corpuscular Volume 82.5 fL (80.0-100.0); Monocytes # (auto) 0.4 10 ^3/uL (0-1.3); Monocytes % (auto) 2.5 % (0.0-12.0); Neutrophils # (auto) 15.5 10 ^3/uL (1.6-8.6); Neutrophils % (auto) 93.3 % (37.0-80.0); Nucleated Red Blood Cells % 0.6 %; Red Blood Cells 3.24 10^6/uL (4.0-5.20); Red Cell Distribution Width 14.1 % (11.8-14.3); White Blood Cell 16.6 10^3/uL (4.4-10.8)
[2023-05-21 02:29] LABS: Chloride 106 mmol/L (98-107); Potassium 3.5 mmol/L (3.5-5.1); Sodium 144 mmol/L (136-145)
[2023-05-21 02:30] LABS: Anion Gap 8 (5-15); Carbon Dioxide 30 mmol/L (20-30)
[2023-05-21 02:31] LABS: Calcium 7.8 mg/dL (8.7-10.4)
[2023-05-21 02:35] LABS: BUN/Creatinine Ratio 39.7 (10.0-20.0); Blood Urea Nitrogen 27 mg/dL (9-23)
[2023-05-21 02:37] LABS: Glucose 226 mg/dL (74-106)
[2023-05-21] MEDS: CEFEPIME 1GM/ 50ML 50 ML IV SCH ×3 (05:23→21:40)
[2023-05-21 08:07] LABS: Base Excess 6.2 mmol/L (-2.0-2.0)
[2023-05-21] MEDS: BUDESONIDE (INHALATION) 0.5 MG/2 ML NEB NEB SCH ×2 (10:04→18:24)
[2023-05-21] MEDS: PANTOPRAZOLE 40 MG/10 ML VIAL INJ IV SCH (10:40)
[2023-05-21] MEDS: AMIODARONE HCL 200 MG TAB PO SCH ×2 (10:41→21:40)
[2023-05-21] MEDS: ENOXAPARIN SOD 60 MG/0.6 ML SYRINGE SC SCH ×2 (10:41→21:40)
[2023-05-21] MEDS: MICAFUNGIN SODIUM 100 MG in SODIUM CHL 0.9% 100 ML IV SCH (10:42)
[2023-05-21] MEDS: SODIUM CHLOR 0.9% PF (SALINE LOCK) 10ML VIAL/SYR IV SCH ×2 (10:42→21:40)
[2023-05-21] MEDS: VASOPRESSIN 20 UNITS in SODIUM CHL 0.9% 99 ML IV SCH ×2 (11:57→21:48)
[2023-05-21] MEDS ORDERED: FUROSEMIDE 20 MG/2 ML VIAL IV ONE (12:00)
[2023-05-21] MEDS ORDERED: POTASSIUM EFFERVESENT TAB 25 MEQ GT ONE (12:00)
[2023-05-21] MEDS: LINEZOLID 600MG/300ML 300 ML IV SCH ×2 (12:24→21:40)
[2023-05-21] MEDS: PROPOFOL 100 ML IV SCH (16:15)
[2023-05-21] MEDS: NOREPINEPHRINE 8 MG/250ML KIT 250 ML IV SCH (18:21)
[2023-05-22] VITALS (105 sets, daily range): BP systolic 89–154; BP diastolic 45–74; PULSE 78–115; RESP 16–37; TEMP 96.6–99.9; O2SAT 81–100
[2023-05-22] MEDS: LEVALBUTEROL HCL 1.25 MG/3 ML NEB NEB SCH ×4 (00:08→18:48)
[2023-05-22] MEDS: IPRATROPIUM BROM 0.5 MG/2.5ML INH SOL NEB SCH ×4 (00:09→18:48)
[2023-05-22 03:03] LABS: Eosinophils # (auto) 0 10 ^3/uL (0-0.8); Lymphocytes # (auto) 0.6 10 ^3/uL (0.4-5.4); Mean Corpuscular Hgb Conc. 32.4 g/dL (32.0-36.0); Nucleated Red Blood Cells % 0.2 %; White Blood Cell 15.7 10^3/uL (4.4-10.8)
[2023-05-22 03:05] LABS: Basophils # (auto) 0 10 ^3/uL (0-0.2); Basophils % (auto) 0.3 % (0.0-2.0); Hematocrit 24.5 % (36.0-46.0); Hemoglobin 7.9 g/dL (12.2-16.2); Lymphocytes % (auto) 4.1 % (10.0-50.0); Mean Corpuscular Hemoglobin 26.6 pg (28.0-32.0); Mean Corpuscular Volume 82.1 fL (80.0-100.0); Monocytes # (auto) 0.6 10 ^3/uL (0-1.3); Monocytes % (auto) 3.9 % (0.0-12.0); Neutrophils # (auto) 14.4 10 ^3/uL (1.6-8.6); Neutrophils % (auto) 91.7 % (37.0-80.0); Red Blood Cells 2.98 10^6/uL (4.0-5.20); Red Cell Distribution Width 13.4 % (11.8-14.3)
[2023-05-22 03:16] LABS: Alanine Aminotransferase 62 U/L (7-40); Albumin 2.4 g/dL (3.2-4.8); Alkaline Phosphatase 146 U/L (46-116); Anion Gap 7 (5-15); Aspartate Aminotransferase 56 U/L (13-40); BUN/Creatinine Ratio 43.5 (10.0-20.0); Bilirubin, Total 0.2 mg/dL (0.2-1.0); Blood Urea Nitrogen 27 mg/dL (9-23); Calcium 7.9 mg/dL (8.7-10.4); Carbon Dioxide 30 mmol/L (20-30); Chloride 106 mmol/L (98-107); Potassium 3.4 mmol/L (3.5-5.1); Sodium 143 mmol/L (136-145); Total Protein 5.4 g/dL (5.7-8.2)
[2023-05-22 03:32] LABS: Glucose 138 mg/dL (74-106)
[2023-05-22] MEDS: CEFEPIME 1GM/ 50ML 50 ML IV SCH ×3 (05:50→21:35)
[2023-05-22] MEDS: fentaNYL Drip 2500mCg/250mlNS 250 ML IV SCH (08:00)
[2023-05-22 08:02] LABS: Base Excess 5.4 mmol/L (-2.0-2.0)
[2023-05-22] MEDS: POTASSIUM EFFERVESENT TAB 25 MEQ GT SCH (09:56)
[2023-05-22] MEDS: FUROSEMIDE 20 MG/2 ML VIAL IV SCH (09:57)
[2023-05-22] MEDS: MICAFUNGIN SODIUM 100 MG in SODIUM CHL 0.9% 100 ML IV SCH (09:57)
[2023-05-22] MEDS: SODIUM CHLOR 0.9% PF (SALINE LOCK) 10ML VIAL/SYR IV SCH ×2 (09:57→21:36)
[2023-05-22] MEDS: PANTOPRAZOLE 40 MG/10 ML VIAL INJ IV SCH (09:57)
[2023-05-22] MEDS: LINEZOLID 600MG/300ML 300 ML IV SCH ×2 (09:59→21:35)
[2023-05-22] MEDS: VASOPRESSIN 20 UNITS in SODIUM CHL 0.9% 99 ML IV SCH ×2 (10:00→21:18)
[2023-05-22] MEDS: ENOXAPARIN SOD 60 MG/0.6 ML SYRINGE SC SCH ×2 (10:00→21:36)
[2023-05-22] MEDS: AMIODARONE HCL 200 MG TAB PO SCH ×2 (10:00→21:35)
[2023-05-22] MEDS: IRON SUCROSE COMPLEX 100 ML IV SCH (12:00)
[2023-05-22] MEDS: MIDAZOLAM DRIP 50 mg/50mL 50 ML IV SCH (12:45)
[2023-05-22] MEDS ORDERED: POTASSIUM EFFERVESENT TAB 25 MEQ GT ONE (16:00)
[2023-05-22] MEDS: PROPOFOL 100 ML IV SCH (16:15)
[2023-05-22] MEDS: BUDESONIDE (INHALATION) 0.5 MG/2 ML NEB NEB SCH (18:48)
[2023-05-23] VITALS (110 sets, daily range): BP systolic 79–135; BP diastolic 40–68; PULSE 75–92; RESP 20–36; TEMP 96.6–99; O2SAT 93–100
[2023-05-23] MEDS: LEVALBUTEROL HCL 1.25 MG/3 ML NEB NEB SCH ×4 (00:22→18:44)
[2023-05-23] MEDS: IPRATROPIUM BROM 0.5 MG/2.5ML INH SOL NEB SCH ×4 (00:22→18:44)
[2023-05-23 04:14] LABS: Basophils # (auto) 0 10 ^3/uL (0-0.2); Eosinophils # (auto) 0 10 ^3/uL (0-0.8); Hemoglobin 7.3 g/dL (12.2-16.2); Lymphocytes # (auto) 0.4 10 ^3/uL (0.4-5.4); Lymphocytes % (auto) 4.5 % (10.0-50.0); Monocytes # (auto) 0.3 10 ^3/uL (0-1.3); Nucleated Red Blood Cells % 0.2 %
[2023-05-23 04:16] LABS: Basophils % (auto) 0.1 % (0.0-2.0); Hematocrit 22.6 % (36.0-46.0); Mean Corpuscular Hemoglobin 26.5 pg (28.0-32.0); Mean Corpuscular Hgb Conc. 32.2 g/dL (32.0-36.0); Mean Corpuscular Volume 82.4 fL (80.0-100.0); Monocytes % (auto) 3.2 % (0.0-12.0); Neutrophils # (auto) 8.3 10 ^3/uL (1.6-8.6); Neutrophils % (auto) 92.2 % (37.0-80.0); Red Blood Cells 2.74 10^6/uL (4.0-5.20); Red Cell Distribution Width 13.8 % (11.8-14.3)
[2023-05-23 04:23] LABS: Alanine Aminotransferase 61 U/L (7-40); Albumin 2.2 g/dL (3.2-4.8); Alkaline Phosphatase 113 U/L (46-116); Anion Gap 7 (5-15); Aspartate Aminotransferase 54 U/L (13-40); BUN/Creatinine Ratio 53.7 (10.0-20.0); Blood Urea Nitrogen 22 mg/dL (9-23); Calcium 7.6 mg/dL (8.7-10.4); Carbon Dioxide 31 mmol/L (20-30); Chloride 105 mmol/L (98-107); Glucose 117 mg/dL (74-106); Potassium 3.5 mmol/L (3.5-5.1); Sodium 143 mmol/L (136-145)
[2023-05-23 04:24] LABS: Bilirubin, Total 0.4 mg/dL (0.2-1.0); Total Protein 4.8 g/dL (5.7-8.2)
[2023-05-23] MEDS: CEFEPIME 1GM/ 50ML 50 ML IV SCH ×3 (06:00→21:10)
[2023-05-23] MEDS: BUDESONIDE (INHALATION) 0.5 MG/2 ML NEB NEB SCH ×2 (06:13→18:44)
[2023-05-23 07:07] LABS: Base Excess 6.4 mmol/L (-2.0-2.0)
[2023-05-23] MEDS: fentaNYL Drip 2500mCg/250mlNS 250 ML IV SCH (08:00)
[2023-05-23] MEDS: VASOPRESSIN 20 UNITS in SODIUM CHL 0.9% 99 ML IV SCH ×2 (08:25→19:32)
[2023-05-23] MEDS: FUROSEMIDE 20 MG/2 ML VIAL IV SCH (10:13)
[2023-05-23] MEDS: POTASSIUM EFFERVESENT TAB 25 MEQ GT SCH (10:13)
[2023-05-23] MEDS: PANTOPRAZOLE 40 MG/10 ML VIAL INJ IV SCH (10:14)
[2023-05-23] MEDS: AMIODARONE HCL 200 MG TAB PO SCH ×2 (10:14→21:09)
[2023-05-23] MEDS: MICAFUNGIN SODIUM 100 MG in SODIUM CHL 0.9% 100 ML IV SCH (10:14)
[2023-05-23] MEDS: SODIUM CHLOR 0.9% PF (SALINE LOCK) 10ML VIAL/SYR IV SCH ×2 (10:14→21:10)
[2023-05-23] MEDS: LINEZOLID 600MG/300ML 300 ML IV SCH ×2 (10:14→21:09)
[2023-05-23] MEDS: ENOXAPARIN SOD 60 MG/0.6 ML SYRINGE SC SCH ×2 (10:15→21:10)
[2023-05-23] MEDS: IRON SUCROSE COMPLEX 100 ML IV SCH (12:00)
[2023-05-23] MEDS: MIDAZOLAM DRIP 50 mg/50mL 50 ML IV SCH (12:35)
[2023-05-23] MEDS: NOREPINEPHRINE 8 MG/250ML KIT 250 ML IV SCH (15:00)
[2023-05-23] MEDS: PROPOFOL 100 ML IV SCH (15:05)
[2023-05-23] MEDS ORDERED: POTASSIUM EFFERVESENT TAB 25 MEQ GT ONE (17:15)
[2023-05-24] VITALS (115 sets, daily range): BP systolic 82–139; BP diastolic 41–69; PULSE 80–100; RESP 22–37; TEMP 97–98.1; O2SAT 92–100
[2023-05-24] MEDS: LEVALBUTEROL HCL 1.25 MG/3 ML NEB NEB SCH ×4 (00:24→18:39)
[2023-05-24] MEDS: IPRATROPIUM BROM 0.5 MG/2.5ML INH SOL NEB SCH ×4 (00:24→18:39)
[2023-05-24 03:59] LABS: Chloride 103 mmol/L (98-107); Potassium 3.5 mmol/L (3.5-5.1); Sodium 138 mmol/L (136-145)
[2023-05-24 04:00] LABS: Anion Gap 6 (5-15); Calcium 7.6 mg/dL (8.7-10.4); Carbon Dioxide 29 mmol/L (20-30)
[2023-05-24 04:03] LABS: Basophils # (auto) 0 10 ^3/uL (0-0.2); Basophils % (auto) 0.1 % (0.0-2.0); Eosinophils # (auto) 0 10 ^3/uL (0-0.8); Hematocrit 26.2 % (36.0-46.0); Hemoglobin 8.6 g/dL (12.2-16.2); Lymphocytes # (auto) 0.5 10 ^3/uL (0.4-5.4); Lymphocytes % (auto) 4.2 % (10.0-50.0); Mean Corpuscular Hemoglobin 27.6 pg (28.0-32.0); Mean Corpuscular Hgb Conc. 32.7 g/dL (32.0-36.0); Mean Corpuscular Volume 84.2 fL (80.0-100.0); Monocytes # (auto) 0.3 10 ^3/uL (0-1.3); Monocytes % (auto) 2.5 % (0.0-12.0); Neutrophils # (auto) 10.7 10 ^3/uL (1.6-8.6); Neutrophils % (auto) 93.2 % (37.0-80.0); Nucleated Red Blood Cells % 0.5 %; Red Blood Cells 3.11 10^6/uL (4.0-5.20); Red Cell Distribution Width 14.4 % (11.8-14.3); White Blood Cell 11.5 10^3/uL (4.4-10.8)
[2023-05-24 04:05] LABS: Blood Urea Nitrogen 14 mg/dL (9-23); Glucose 150 mg/dL (74-106)
[2023-05-24] MEDS: CEFEPIME 1GM/ 50ML 50 ML IV SCH ×3 (04:58→21:51)
[2023-05-24] MEDS: BUDESONIDE (INHALATION) 0.5 MG/2 ML NEB NEB SCH ×2 (06:35→18:39)
[2023-05-24] MEDS: VASOPRESSIN 20 UNITS in SODIUM CHL 0.9% 99 ML IV SCH ×2 (06:39→17:46)
[2023-05-24] MEDS: fentaNYL Drip 2500mCg/250mlNS 250 ML IV SCH ×2 (08:00→16:14)
[2023-05-24 09:14] LABS: Base Excess 8.5 mmol/L (-2.0-2.0)
[2023-05-24] MEDS: POTASSIUM EFFERVESENT TAB 25 MEQ GT SCH ×2 (09:52→21:52)
[2023-05-24] MEDS: FUROSEMIDE 20 MG/2 ML VIAL IV SCH (09:52)
[2023-05-24] MEDS: ENOXAPARIN SOD 60 MG/0.6 ML SYRINGE SC SCH ×2 (09:52→21:52)
[2023-05-24] MEDS: PANTOPRAZOLE 40 MG/10 ML VIAL INJ IV SCH (09:52)
[2023-05-24] MEDS: AMIODARONE HCL 200 MG TAB PO SCH ×2 (09:52→21:51)
[2023-05-24] MEDS: MICAFUNGIN SODIUM 100 MG in SODIUM CHL 0.9% 100 ML IV SCH (09:53)
[2023-05-24] MEDS: LINEZOLID 600MG/300ML 300 ML IV SCH ×2 (09:53→21:51)
[2023-05-24] MEDS: SODIUM CHLOR 0.9% PF (SALINE LOCK) 10ML VIAL/SYR IV SCH ×2 (10:00→21:52)
[2023-05-24] MEDS: MIDAZOLAM DRIP 50 mg/50mL 50 ML IV SCH (12:45)
[2023-05-24] MEDS: NOREPINEPHRINE 8 MG/250ML KIT 250 ML IV SCH (13:00)
[2023-05-24] MEDS: IRON SUCROSE COMPLEX 100 ML IV SCH (13:49)
[2023-05-24] MEDS: PROPOFOL 100 ML IV SCH (16:15)
[2023-05-25] VITALS (110 sets, daily range): BP systolic 91–142; BP diastolic 46–77; PULSE 77–100; RESP 18–29; TEMP 97.6–98.2; O2SAT 91–100
[2023-05-25] MEDS: IPRATROPIUM BROM 0.5 MG/2.5ML INH SOL NEB SCH ×4 (00:31→18:22)
[2023-05-25] MEDS: LEVALBUTEROL HCL 1.25 MG/3 ML NEB NEB SCH ×4 (00:32→18:22)
[2023-05-25] MEDS: VASOPRESSIN 20 UNITS in SODIUM CHL 0.9% 99 ML IV SCH ×2 (03:07→16:00)
[2023-05-25 04:11] LABS: Basophils # (auto) 0 10 ^3/uL (0-0.2); Eosinophils # (auto) 0 10 ^3/uL (0-0.8); Eosinophils % (auto) 0.1 % (0.0-7.0); Monocytes # (auto) 0.3 10 ^3/uL (0-1.3); Nucleated Red Blood Cells % 0.4 %; Red Cell Distribution Width 14.4 % (11.8-14.3); White Blood Cell 13.3 10^3/uL (4.4-10.8)
[2023-05-25 04:13] LABS: Basophils % (auto) 0.3 % (0.0-2.0); Hematocrit 26.2 % (36.0-46.0); Hemoglobin 8.3 g/dL (12.2-16.2); Lymphocytes # (auto) 0.5 10 ^3/uL (0.4-5.4); Mean Corpuscular Hgb Conc. 31.8 g/dL (32.0-36.0); Mean Corpuscular Volume 84.8 fL (80.0-100.0); Monocytes % (auto) 2.2 % (0.0-12.0); Neutrophils # (auto) 12.4 10 ^3/uL (1.6-8.6); Neutrophils % (auto) 93.4 % (37.0-80.0); Red Blood Cells 3.09 10^6/uL (4.0-5.20)
[2023-05-25 04:28] LABS: Anion Gap 4 (5-15); Calcium 7.7 mg/dL (8.7-10.4); Carbon Dioxide 32 mmol/L (20-30); Chloride 103 mmol/L (98-107); Potassium 3.9 mmol/L (3.5-5.1); Sodium 139 mmol/L (136-145)
[2023-05-25 04:34] LABS: BUN/Creatinine Ratio 40.5 (10.0-20.0); Blood Urea Nitrogen 17 mg/dL (9-23); Glucose 130 mg/dL (74-106)
[2023-05-25] MEDS: CEFEPIME 1GM/ 50ML 50 ML IV SCH ×3 (05:33→22:10)
[2023-05-25] MEDS: BUDESONIDE (INHALATION) 0.5 MG/2 ML NEB NEB SCH ×2 (06:32→18:22)
[2023-05-25 07:00] LABS: Base Excess 8.4 mmol/L (-2.0-2.0)
[2023-05-25] MEDS: fentaNYL Drip 2500mCg/250mlNS 250 ML IV SCH (08:41)
[2023-05-25] MEDS: LINEZOLID 600MG/300ML 300 ML IV SCH ×2 (10:49→22:10)
[2023-05-25] MEDS: SODIUM CHLOR 0.9% PF (SALINE LOCK) 10ML VIAL/SYR IV SCH ×2 (10:49→22:10)
[2023-05-25] MEDS: FUROSEMIDE 20 MG/2 ML VIAL IV SCH (10:49)
[2023-05-25] MEDS: PANTOPRAZOLE 40 MG/10 ML VIAL INJ IV SCH (10:49)
[2023-05-25] MEDS: POTASSIUM EFFERVESENT TAB 25 MEQ GT SCH ×2 (10:50→22:10)
[2023-05-25] MEDS: ENOXAPARIN SOD 60 MG/0.6 ML SYRINGE SC SCH ×2 (10:50→22:11)
[2023-05-25] MEDS: AMIODARONE HCL 200 MG TAB PO SCH ×2 (10:50→22:10)
[2023-05-25] MEDS: MICAFUNGIN SODIUM 100 MG in SODIUM CHL 0.9% 100 ML IV SCH (11:41)
[2023-05-25] MEDS: IRON SUCROSE COMPLEX 100 ML IV SCH (12:43)
[2023-05-25] MEDS: MIDAZOLAM DRIP 50 mg/50mL 50 ML IV SCH (12:45)
[2023-05-25] MEDS: PROPOFOL 100 ML IV SCH (16:15)
[2023-05-25] MEDS: NOREPINEPHRINE 8 MG/250ML KIT 250 ML IV SCH (17:09)
[2023-05-26] VITALS (107 sets, daily range): BP systolic 91–152; BP diastolic 46–81; PULSE 86–104; RESP 16–26; TEMP 98.8–99.1; O2SAT 94–100
[2023-05-26] MEDS: LEVALBUTEROL HCL 1.25 MG/3 ML NEB NEB SCH ×4 (00:30→18:41)
[2023-05-26] MEDS: IPRATROPIUM BROM 0.5 MG/2.5ML INH SOL NEB SCH ×4 (00:30→18:41)
[2023-05-26] MEDS: VASOPRESSIN 20 UNITS in SODIUM CHL 0.9% 99 ML IV SCH ×2 (03:07→14:14)
[2023-05-26 03:38] LABS: Anion Gap 2 (5-15); Carbon Dioxide 32 mmol/L (20-30); Chloride 103 mmol/L (98-107); Potassium 4.3 mmol/L (3.5-5.1); Sodium 137 mmol/L (136-145)
[2023-05-26 03:39] LABS: Calcium 7.7 mg/dL (8.7-10.4)
[2023-05-26 03:41] LABS: Eosinophils # (auto) 0 10 ^3/uL (0-0.8); Hemoglobin 7.9 g/dL (12.2-16.2); Lymphocytes # (auto) 0.7 10 ^3/uL (0.4-5.4); Monocytes # (auto) 0.3 10 ^3/uL (0-1.3); Monocytes % (auto) 2.8 % (0.0-12.0); Nucleated Red Blood Cells % 0.2 %; Red Cell Distribution Width 14.6 % (11.8-14.3)
[2023-05-26 03:44] LABS: BUN/Creatinine Ratio 42.1 (10.0-20.0); Basophils # (auto) 0.1 10 ^3/uL (0-0.2); Basophils % (auto) 0.5 % (0.0-2.0); Blood Urea Nitrogen 16 mg/dL (9-23); Eosinophils % (auto) 0.3 % (0.0-7.0); Glucose 125 mg/dL (74-106); Hematocrit 24.3 % (36.0-46.0); Lymphocytes % (auto) 5.7 % (10.0-50.0); Mean Corpuscular Hgb Conc. 32.7 g/dL (32.0-36.0); Mean Corpuscular Volume 85.7 fL (80.0-100.0); Neutrophils # (auto) 11.2 10 ^3/uL (1.6-8.6); Neutrophils % (auto) 90.7 % (37.0-80.0); Red Blood Cells 2.84 10^6/uL (4.0-5.20); White Blood Cell 12.3 10^3/uL (4.4-10.8)
[2023-05-26] MEDS: CEFEPIME 1GM/ 50ML 50 ML IV SCH ×3 (05:57→21:55)
[2023-05-26] MEDS: BUDESONIDE (INHALATION) 0.5 MG/2 ML NEB NEB SCH ×2 (06:14→18:41)
[2023-05-26 07:14] LABS: Base Excess 5.7 mmol/L (-2.0-2.0)
[2023-05-26] MEDS: LINEZOLID 600MG/300ML 300 ML IV SCH ×2 (09:05→21:55)
[2023-05-26] MEDS: POTASSIUM EFFERVESENT TAB 25 MEQ GT SCH ×2 (09:59→21:56)
[2023-05-26] MEDS: AMIODARONE HCL 200 MG TAB PO SCH ×2 (10:00→21:55)
[2023-05-26] MEDS: PANTOPRAZOLE 40 MG/10 ML VIAL INJ IV SCH (10:00)
[2023-05-26] MEDS: FUROSEMIDE 20 MG/2 ML VIAL IV SCH (10:00)
[2023-05-26] MEDS: SODIUM CHLOR 0.9% PF (SALINE LOCK) 10ML VIAL/SYR IV SCH ×2 (10:01→21:56)
[2023-05-26] MEDS: ENOXAPARIN SOD 60 MG/0.6 ML SYRINGE SC SCH ×2 (10:01→21:55)
[2023-05-26] MEDS: MICAFUNGIN SODIUM 100 MG in SODIUM CHL 0.9% 100 ML IV SCH (10:15)
[2023-05-26] MEDS: IRON SUCROSE COMPLEX 100 ML IV SCH (11:44)
[2023-05-26] MEDS: MIDAZOLAM DRIP 50 mg/50mL 50 ML IV SCH (12:45)
[2023-05-26] MEDS: NOREPINEPHRINE 8 MG/250ML KIT 250 ML IV SCH (15:00)
[2023-05-26] MEDS: fentaNYL Drip 2500mCg/250mlNS 250 ML IV SCH (16:14)
[2023-05-26] MEDS: PROPOFOL 100 ML IV SCH (16:15)
[2023-05-27] VITALS (107 sets, daily range): BP systolic 91–150; BP diastolic 43–77; PULSE 84–105; RESP 20–32; TEMP 98–99.6; O2SAT 93–100
[2023-05-27] MEDS: LEVALBUTEROL HCL 1.25 MG/3 ML NEB NEB SCH ×5 (00:17→18:44)
[2023-05-27] MEDS: IPRATROPIUM BROM 0.5 MG/2.5ML INH SOL NEB SCH ×5 (00:17→18:44)
[2023-05-27] MEDS: VASOPRESSIN 20 UNITS in SODIUM CHL 0.9% 99 ML IV SCH ×3 (01:21→22:00)
[2023-05-27 04:12] LABS: Basophils # (auto) 0 10 ^3/uL (0-0.2); Basophils % (auto) 0.2 % (0.0-2.0); Eosinophils # (auto) 0.1 10 ^3/uL (0-0.8); Eosinophils % (auto) 0.4 % (0.0-7.0); Hematocrit 26.5 % (36.0-46.0); Hemoglobin 8.5 g/dL (12.2-16.2); Lymphocytes # (auto) 0.7 10 ^3/uL (0.4-5.4); Lymphocytes % (auto) 5.7 % (10.0-50.0); Mean Corpuscular Hemoglobin 27.6 pg (28.0-32.0); Mean Corpuscular Hgb Conc. 31.9 g/dL (32.0-36.0); Mean Corpuscular Volume 86.7 fL (80.0-100.0); Monocytes # (auto) 0.4 10 ^3/uL (0-1.3); Monocytes % (auto) 2.9 % (0.0-12.0); Neutrophils # (auto) 11.6 10 ^3/uL (1.6-8.6); Neutrophils % (auto) 90.8 % (37.0-80.0); Nucleated Red Blood Cells % 0.2 %; Red Blood Cells 3.06 10^6/uL (4.0-5.20); Red Cell Distribution Width 14.4 % (11.8-14.3); White Blood Cell 12.8 10^3/uL (4.4-10.8)
[2023-05-27 04:27] LABS: Calcium 8.1 mg/dL (8.7-10.4); Chloride 100 mmol/L (98-107); Potassium 4.3 mmol/L (3.5-5.1); Sodium 135 mmol/L (136-145)
[2023-05-27 04:28] LABS: Anion Gap 3 (5-15); Carbon Dioxide 32 mmol/L (20-30)
[2023-05-27 04:34] LABS: BUN/Creatinine Ratio 36.8 (10.0-20.0); Blood Urea Nitrogen 14 mg/dL (9-23); Glucose 106 mg/dL (74-106)
[2023-05-27] MEDS: CEFEPIME 1GM/ 50ML 50 ML IV SCH ×3 (06:24→21:59)
[2023-05-27] MEDS: BUDESONIDE (INHALATION) 0.5 MG/2 ML NEB NEB SCH ×2 (06:25→22:18)
[2023-05-27 07:31] LABS: Base Excess 8.3 mmol/L (-2.0-2.0)
[2023-05-27] MEDS: PANTOPRAZOLE 40 MG/10 ML VIAL INJ IV SCH (09:35)
[2023-05-27] MEDS: SODIUM CHLOR 0.9% PF (SALINE LOCK) 10ML VIAL/SYR IV SCH ×2 (09:36→22:00)
[2023-05-27] MEDS: LINEZOLID 600MG/300ML 300 ML IV SCH ×2 (09:36→21:58)
[2023-05-27] MEDS: AMIODARONE HCL 200 MG TAB PO SCH ×2 (09:36→22:00)
[2023-05-27] MEDS: ENOXAPARIN SOD 60 MG/0.6 ML SYRINGE SC SCH ×2 (09:37→21:59)
[2023-05-27] MEDS: POTASSIUM EFFERVESENT TAB 25 MEQ GT SCH ×2 (09:37→21:59)
[2023-05-27] MEDS: FUROSEMIDE 20 MG/2 ML VIAL IV SCH (09:37)
[2023-05-27] MEDS: MICAFUNGIN SODIUM 100 MG in SODIUM CHL 0.9% 100 ML IV SCH (09:38)
[2023-05-27] MEDS: MIDAZOLAM DRIP 50 mg/50mL 50 ML IV SCH (12:45)
[2023-05-27] MEDS: fentaNYL Drip 2500mCg/250mlNS 250 ML IV SCH (13:53)
[2023-05-27] MEDS: NOREPINEPHRINE 8 MG/250ML KIT 250 ML IV SCH (14:00)
[2023-05-27] MEDS: Jevity 1.2 Cal/Fiber 1 Liter GT SCH (14:32)
[2023-05-27] MEDS: PROPOFOL 100 ML IV SCH (16:15)
[2023-05-27] MEDS: LACTULOSE 20Gm/30ML SOLN PO SCH (21:59)
[2023-05-28] VITALS (106 sets, daily range): BP systolic 88–152; BP diastolic 46–75; PULSE 87–101; RESP 19–29; TEMP 97.4–98.2; O2SAT 91–100
[2023-05-28] MEDS: LEVALBUTEROL HCL 1.25 MG/3 ML NEB NEB SCH ×4 (00:18→18:29)
[2023-05-28] MEDS: IPRATROPIUM BROM 0.5 MG/2.5ML INH SOL NEB SCH ×4 (00:18→18:29)
[2023-05-28 03:33] LABS: Basophils # (auto) 0 10 ^3/uL (0-0.2); Basophils % (auto) 0.2 % (0.0-2.0); Eosinophils # (auto) 0 10 ^3/uL (0-0.8); Mean Corpuscular Hgb Conc. 31.7 g/dL (32.0-36.0); Red Cell Distribution Width 14.8 % (11.8-14.3)
[2023-05-28 03:36] LABS: Eosinophils % (auto) 0.3 % (0.0-7.0); Hematocrit 24.6 % (36.0-46.0); Hemoglobin 7.8 g/dL (12.2-16.2); Lymphocytes # (auto) 0.7 10 ^3/uL (0.4-5.4); Lymphocytes % (auto) 5.5 % (10.0-50.0); Mean Corpuscular Hemoglobin 27.7 pg (28.0-32.0); Mean Corpuscular Volume 87.3 fL (80.0-100.0); Monocytes # (auto) 0.5 10 ^3/uL (0-1.3); Monocytes % (auto) 3.7 % (0.0-12.0); Neutrophils % (auto) 90.3 % (37.0-80.0); Red Blood Cells 2.81 10^6/uL (4.0-5.20); White Blood Cell 12.2 10^3/uL (4.4-10.8)
[2023-05-28 03:49] LABS: Anion Gap 3 (5-15); Carbon Dioxide 32 mmol/L (20-30); Chloride 99 mmol/L (98-107); Potassium 3.9 mmol/L (3.5-5.1); Sodium 134 mmol/L (136-145)
[2023-05-28 03:50] LABS: Calcium 8.2 mg/dL (8.7-10.4)
[2023-05-28 03:55] LABS: BUN/Creatinine Ratio 35.9 (10.0-20.0); Blood Urea Nitrogen 14 mg/dL (9-23); Glucose 155 mg/dL (74-106)
[2023-05-28] MEDS: CEFEPIME 1GM/ 50ML 50 ML IV SCH ×3 (05:55→21:18)
[2023-05-28] MEDS: LACTULOSE 20Gm/30ML SOLN PO SCH ×3 (05:55→21:25)
[2023-05-28] MEDS: fentaNYL Drip 2500mCg/250mlNS 250 ML IV SCH ×2 (05:56→21:29)
[2023-05-28] MEDS: BUDESONIDE (INHALATION) 0.5 MG/2 ML NEB NEB SCH ×2 (06:14→18:30)
[2023-05-28 08:47] LABS: Base Excess 8.3 mmol/L (-2.0-2.0)
[2023-05-28] MEDS: POTASSIUM EFFERVESENT TAB 25 MEQ GT SCH ×2 (10:06→21:24)
[2023-05-28] MEDS: FUROSEMIDE 20 MG/2 ML VIAL IV SCH (10:07)
[2023-05-28] MEDS: AMIODARONE HCL 200 MG TAB PO SCH ×2 (10:07→21:23)
[2023-05-28] MEDS: PANTOPRAZOLE 40 MG/10 ML VIAL INJ IV SCH (10:07)
[2023-05-28] MEDS: LINEZOLID 600MG/300ML 300 ML IV SCH ×2 (10:08→21:24)
[2023-05-28] MEDS: MICAFUNGIN SODIUM 100 MG in SODIUM CHL 0.9% 100 ML IV SCH (10:08)
[2023-05-28] MEDS: SODIUM CHLOR 0.9% PF (SALINE LOCK) 10ML VIAL/SYR IV SCH ×2 (10:08→21:25)
[2023-05-28] MEDS: ENOXAPARIN SOD 60 MG/0.6 ML SYRINGE SC SCH ×2 (10:08→21:25)
[2023-05-28] MEDS: VASOPRESSIN 20 UNITS in SODIUM CHL 0.9% 99 ML IV SCH ×2 (10:42→21:49)
[2023-05-28] MEDS: MIDAZOLAM DRIP 50 mg/50mL 50 ML IV SCH (12:45)
[2023-05-28] MEDS: NOREPINEPHRINE 8 MG/250ML KIT 250 ML IV SCH (15:00)
[2023-05-28] MEDS: PROPOFOL 100 ML IV SCH (16:15)
[2023-05-29] VITALS (100 sets, daily range): BP systolic 82–158; BP diastolic 41–72; PULSE 79–97; RESP 18–27; TEMP 97.7–98.7; O2SAT 90–98
[2023-05-29] MEDS: IPRATROPIUM BROM 0.5 MG/2.5ML INH SOL NEB SCH ×4 (00:12→18:36)
[2023-05-29] MEDS: LEVALBUTEROL HCL 1.25 MG/3 ML NEB NEB SCH ×4 (00:12→18:36)
[2023-05-29 04:22] LABS: Anion Gap 5 (5-15); Carbon Dioxide 31 mmol/L (20-30); Chloride 99 mmol/L (98-107); Sodium 135 mmol/L (136-145)
[2023-05-29 04:28] LABS: BUN/Creatinine Ratio 44.4 (10.0-20.0); Blood Urea Nitrogen 16 mg/dL (9-23); Glucose 98 mg/dL (74-106)
[2023-05-29 04:52] LABS: Basophils # (auto) 0.1 10 ^3/uL (0-0.2); Basophils % (auto) 0.6 % (0.0-2.0); Eosinophils # (auto) 0.1 10 ^3/uL (0-0.8); Eosinophils % (auto) 1.2 % (0.0-7.0); Hematocrit 21.7 % (36.0-46.0); Hemoglobin 7.1 g/dL (12.2-16.2); Lymphocytes # (auto) 0.7 10 ^3/uL (0.4-5.4); Lymphocytes % (auto) 7.2 % (10.0-50.0); Mean Corpuscular Hemoglobin 28.5 pg (28.0-32.0); Mean Corpuscular Hgb Conc. 32.6 g/dL (32.0-36.0); Mean Corpuscular Volume 87.5 fL (80.0-100.0); Monocytes # (auto) 0.5 10 ^3/uL (0-1.3); Monocytes % (auto) 4.9 % (0.0-12.0); Neutrophils % (auto) 86.1 % (37.0-80.0); Nucleated Red Blood Cells % 0.2 %; Red Blood Cells 2.48 10^6/uL (4.0-5.20); Red Cell Distribution Width 14.8 % (11.8-14.3); White Blood Cell 9.2 10^3/uL (4.4-10.8)
[2023-05-29] MEDS: CEFEPIME 1GM/ 50ML 50 ML IV SCH ×3 (05:13→21:18)
[2023-05-29] MEDS: LACTULOSE 20Gm/30ML SOLN PO SCH ×3 (05:13→21:19)
[2023-05-29] MEDS: BUDESONIDE (INHALATION) 0.5 MG/2 ML NEB NEB SCH ×2 (06:35→18:36)
[2023-05-29] MEDS: VASOPRESSIN 20 UNITS in SODIUM CHL 0.9% 99 ML IV SCH ×2 (07:50→20:03)
[2023-05-29 08:00] LABS: Base Excess 8.5 mmol/L (-2.0-2.0)
[2023-05-29] MEDS: ENOXAPARIN SOD 60 MG/0.6 ML SYRINGE SC SCH (09:48)
[2023-05-29] MEDS: MICAFUNGIN SODIUM 100 MG in SODIUM CHL 0.9% 100 ML IV SCH (10:18)
[2023-05-29] MEDS: AMIODARONE HCL 200 MG TAB PO SCH ×2 (10:19→21:19)
[2023-05-29] MEDS: SODIUM CHLOR 0.9% PF (SALINE LOCK) 10ML VIAL/SYR IV SCH ×2 (10:19→21:20)
[2023-05-29] MEDS: PANTOPRAZOLE 40 MG/10 ML VIAL INJ IV SCH (10:19)
[2023-05-29] MEDS: FUROSEMIDE 20 MG/2 ML VIAL IV SCH (10:19)
[2023-05-29] MEDS: POTASSIUM EFFERVESENT TAB 25 MEQ GT SCH (10:19)
[2023-05-29] MEDS: fentaNYL Drip 2500mCg/250mlNS 250 ML IV SCH ×2 (10:22→21:21)
[2023-05-29] MEDS: LINEZOLID 600MG/300ML 300 ML IV SCH ×2 (11:15→21:19)
[2023-05-29] MEDS ORDERED: METOCLOPRAMIDE HCL 5MG/ml INJ 2ml VIAL IV ONE (11:45)
[2023-05-29] MEDS: MIDAZOLAM DRIP 50 mg/50mL 50 ML IV SCH (14:11)
[2023-05-29] MEDS: NOREPINEPHRINE 8 MG/250ML KIT 250 ML IV SCH (15:00)
[2023-05-29] MEDS: PROPOFOL 100 ML IV SCH (15:10)
[2023-05-29] MEDS: METOCLOPRAMIDE HCL 5MG/ml INJ 2ml VIAL IV SCH (21:19)
[2023-05-29] MEDS: ARTIFICIAL TEARS 15ml EACHEYE PRN (21:20)
[2023-05-30] VITALS (104 sets, daily range): BP systolic 83–152; BP diastolic 43–71; PULSE 84–100; RESP 19–28; TEMP 97.9–99.3; O2SAT 93–100
[2023-05-30] MEDS: LEVALBUTEROL HCL 1.25 MG/3 ML NEB NEB SCH ×4 (00:02→18:37)
[2023-05-30] MEDS: IPRATROPIUM BROM 0.5 MG/2.5ML INH SOL NEB SCH ×4 (00:02→18:37)
[2023-05-30 04:06] LABS: Basophils # (auto) 0 10 ^3/uL (0-0.2); Basophils % (auto) 0.4 % (0.0-2.0); Eosinophils # (auto) 0.1 10 ^3/uL (0-0.8); Hematocrit 27.3 % (36.0-46.0); Hemoglobin 8.9 g/dL (12.2-16.2); Lymphocytes # (auto) 0.6 10 ^3/uL (0.4-5.4); Lymphocytes % (auto) 5.7 % (10.0-50.0); Mean Corpuscular Hemoglobin 28.5 pg (28.0-32.0); Mean Corpuscular Hgb Conc. 32.8 g/dL (32.0-36.0); Monocytes # (auto) 0.4 10 ^3/uL (0-1.3); Monocytes % (auto) 4.3 % (0.0-12.0); Neutrophils # (auto) 8.7 10 ^3/uL (1.6-8.6); Neutrophils % (auto) 88.6 % (37.0-80.0); Nucleated Red Blood Cells % 0.5 %; Red Blood Cells 3.14 10^6/uL (4.0-5.20); Red Cell Distribution Width 14.6 % (11.8-14.3); White Blood Cell 9.9 10^3/uL (4.4-10.8)
[2023-05-30 04:29] LABS: Alanine Aminotransferase 54 U/L (7-40); Albumin 2.2 g/dL (3.2-4.8); Alkaline Phosphatase 128 U/L (46-116); Anion Gap 6 (5-15); Aspartate Aminotransferase 29 U/L (13-40); BUN/Creatinine Ratio 40.5 (10.0-20.0); Blood Urea Nitrogen 17 mg/dL (9-23); Calcium 8.1 mg/dL (8.7-10.4); Carbon Dioxide 30 mmol/L (20-30); Chloride 97 mmol/L (98-107); Glucose 109 mg/dL (74-106); Potassium 3.5 mmol/L (3.5-5.1); Sodium 133 mmol/L (136-145)
[2023-05-30 04:30] LABS: Bilirubin, Total 0.8 mg/dL (0.2-1.0); Total Protein 5.6 g/dL (5.7-8.2)
[2023-05-30] MEDS: LACTULOSE 20Gm/30ML SOLN PO SCH ×3 (04:56→21:33)
[2023-05-30] MEDS: CEFEPIME 1GM/ 50ML 50 ML IV SCH ×3 (04:57→21:33)
[2023-05-30] MEDS: METOCLOPRAMIDE HCL 5MG/ml INJ 2ml VIAL IV SCH ×3 (04:57→21:33)
[2023-05-30] MEDS: BUDESONIDE (INHALATION) 0.5 MG/2 ML NEB NEB SCH ×2 (05:36→18:37)
[2023-05-30 07:08] LABS: Base Excess 4.3 mmol/L (-2.0-2.0)
[2023-05-30] MEDS: VASOPRESSIN 20 UNITS in SODIUM CHL 0.9% 99 ML IV SCH ×2 (07:10→21:32)
[2023-05-30 10:05] LABS: INR 1.13 (0.9-1.15); Partial Thromboplastin Time 32.5 SEC (24.5-34.5); Prothrombin Time 11.8 sec (9.3-11.8)
[2023-05-30] MEDS ORDERED: POTASSIUM EFFERVESENT TAB 25 MEQ GT ONE (11:00)
[2023-05-30] MEDS ORDERED: FUROSEMIDE 20 MG/2 ML VIAL IV ONE (11:00)
[2023-05-30] MEDS: SODIUM CHLOR 0.9% PF (SALINE LOCK) 10ML VIAL/SYR IV SCH ×2 (11:29→21:33)
[2023-05-30] MEDS: LINEZOLID 600MG/300ML 300 ML IV SCH ×2 (11:29→21:33)
[2023-05-30] MEDS: AMIODARONE HCL 200 MG TAB PO SCH ×2 (11:29→21:35)
[2023-05-30] MEDS: ENOXAPARIN SOD 30 MG/0.3 ML SYRINGE SC SCH (11:29)
[2023-05-30] MEDS: MICAFUNGIN SODIUM 100 MG in SODIUM CHL 0.9% 100 ML IV SCH (11:29)
[2023-05-30] MEDS: PANTOPRAZOLE 40 MG/10 ML VIAL INJ IV SCH (11:29)
[2023-05-30] MEDS: fentaNYL Drip 2500mCg/250mlNS 250 ML IV SCH ×2 (11:33→23:32)
[2023-05-30] MEDS: MIDAZOLAM DRIP 50 mg/50mL 50 ML IV SCH (12:45)
[2023-05-30] MEDS: NOREPINEPHRINE 8 MG/250ML KIT 250 ML IV SCH (15:00)
[2023-05-30] MEDS: PROPOFOL 100 ML IV SCH (15:34)
[2023-05-30] MEDS: ARTIFICIAL TEARS 15ml EACHEYE PRN (21:35)
[2023-05-31] VITALS (106 sets, daily range): BP systolic 75–139; BP diastolic 36–101; PULSE 86–107; RESP 21–33; TEMP 98–99.5; O2SAT 92–100
[2023-05-31] MEDS: LEVALBUTEROL HCL 1.25 MG/3 ML NEB NEB SCH ×4 (00:07→19:04)
[2023-05-31] MEDS: IPRATROPIUM BROM 0.5 MG/2.5ML INH SOL NEB SCH ×4 (00:07→19:04)
[2023-05-31] MEDS: NOREPINEPHRINE 8 MG/250ML KIT 250 ML IV SCH (00:36)
[2023-05-31 04:06] LABS: Basophils # (auto) 0.1 10 ^3/uL (0-0.2); Basophils % (auto) 0.5 % (0.0-2.0); Eosinophils # (auto) 0.1 10 ^3/uL (0-0.8); Eosinophils % (auto) 0.3 % (0.0-7.0); Hematocrit 27.1 % (36.0-46.0); Hemoglobin 8.7 g/dL (12.2-16.2); Lymphocytes # (auto) 0.6 10 ^3/uL (0.4-5.4); Lymphocytes % (auto) 3.9 % (10.0-50.0); Mean Corpuscular Hemoglobin 27.6 pg (28.0-32.0); Mean Corpuscular Hgb Conc. 32.2 g/dL (32.0-36.0); Mean Corpuscular Volume 85.6 fL (80.0-100.0); Monocytes # (auto) 0.5 10 ^3/uL (0-1.3); Monocytes % (auto) 3.5 % (0.0-12.0); Neutrophils # (auto) 13.6 10 ^3/uL (1.6-8.6); Neutrophils % (auto) 91.8 % (37.0-80.0); Nucleated Red Blood Cells % 0.4 %; Red Blood Cells 3.17 10^6/uL (4.0-5.20); Red Cell Distribution Width 15.3 % (11.8-14.3); White Blood Cell 14.8 10^3/uL (4.4-10.8)
[2023-05-31 04:27] LABS: Alanine Aminotransferase 48 U/L (7-40); Albumin 2.2 g/dL (3.2-4.8); Alkaline Phosphatase 128 U/L (46-116); Anion Gap 7 (5-15); Aspartate Aminotransferase 22 U/L (13-40); BUN/Creatinine Ratio 39.6 (10.0-20.0); Bilirubin, Total 0.7 mg/dL (0.2-1.0); Blood Urea Nitrogen 21 mg/dL (9-23); Calcium 8.4 mg/dL (8.7-10.4); Carbon Dioxide 27 mmol/L (20-30); Chloride 101 mmol/L (98-107); Glucose 114 mg/dL (74-106); Potassium 3.5 mmol/L (3.5-5.1); Sodium 135 mmol/L (136-145); Total Protein 5.7 g/dL (5.7-8.2)
[2023-05-31] MEDS: CEFEPIME 1GM/ 50ML 50 ML IV SCH ×3 (05:01→21:16)
[2023-05-31] MEDS: METOCLOPRAMIDE HCL 5MG/ml INJ 2ml VIAL IV SCH ×3 (05:01→21:17)
[2023-05-31] MEDS: LACTULOSE 20Gm/30ML SOLN PO SCH ×2 (05:01→14:00)
[2023-05-31] MEDS: VASOPRESSIN 20 UNITS in SODIUM CHL 0.9% 99 ML IV SCH ×2 (05:24→16:31)
[2023-05-31] MEDS: BUDESONIDE (INHALATION) 0.5 MG/2 ML NEB NEB SCH ×2 (06:43→19:04)
[2023-05-31 09:13] LABS: Base Excess 1.8 mmol/L (-2.0-2.0)
[2023-05-31] MEDS: POTASSIUM EFFERVESENT TAB 25 MEQ GT SCH (10:00)
[2023-05-31] MEDS: AMIODARONE HCL 200 MG TAB PO SCH ×2 (10:00→21:17)
[2023-05-31] MEDS: ENOXAPARIN SOD 30 MG/0.3 ML SYRINGE SC SCH (10:00)
[2023-05-31] MEDS: MIDAZOLAM DRIP 50 mg/50mL 50 ML IV SCH (12:31)
[2023-05-31] MEDS ORDERED: fentaNYL CITRATE 100 MCG/2 ML VL ONE (12:54)
[2023-05-31] MEDS ORDERED: ROCURONIUM 10MG/ML 10ML VIAL IV ONE (13:18)
[2023-05-31] MEDS: LINEZOLID 600MG/300ML 300 ML IV SCH ×2 (15:03→21:16)
[2023-05-31] MEDS: SODIUM CHLOR 0.9% PF (SALINE LOCK) 10ML VIAL/SYR IV SCH ×2 (15:04→21:17)
[2023-05-31] MEDS: PANTOPRAZOLE 40 MG/10 ML VIAL INJ IV SCH (15:04)
[2023-05-31] MEDS: FUROSEMIDE 20 MG/2 ML VIAL IV SCH (15:05)
[2023-05-31] MEDS: PROPOFOL 100 ML IV SCH ×2 (16:15→23:25)
[2023-05-31] MEDS: MICAFUNGIN SODIUM 100 MG in SODIUM CHL 0.9% 100 ML IV SCH (16:46)
[2023-05-31] MEDS: fentaNYL Drip 2500mCg/250mlNS 250 ML IV SCH (16:54)
[2023-05-31] MEDS: ARTIFICIAL TEARS 15ml EACHEYE PRN (22:44)
[2023-06-01] VITALS (110 sets, daily range): BP systolic 68–135; BP diastolic 37–77; PULSE 77–96; RESP 16–31; TEMP 96.3–100.3; O2SAT 81–100
[2023-06-01] MEDS: LEVALBUTEROL HCL 1.25 MG/3 ML NEB NEB SCH ×3 (00:28→19:08)
[2023-06-01] MEDS: IPRATROPIUM BROM 0.5 MG/2.5ML INH SOL NEB SCH ×3 (00:29→19:07)
[2023-06-01] MEDS: VASOPRESSIN 20 UNITS in SODIUM CHL 0.9% 99 ML IV SCH ×2 (01:07→14:45)
[2023-06-01 04:00] LABS: Basophils # (auto) 0 10 ^3/uL (0-0.2); Basophils % (auto) 0.2 % (0.0-2.0); Eosinophils # (auto) 0 10 ^3/uL (0-0.8); Eosinophils % (auto) 0.1 % (0.0-7.0); Hematocrit 26.3 % (36.0-46.0); Hemoglobin 8.3 g/dL (12.2-16.2); Lymphocytes # (auto) 0.4 10 ^3/uL (0.4-5.4); Lymphocytes % (auto) 2.6 % (10.0-50.0); Mean Corpuscular Hemoglobin 27.6 pg (28.0-32.0); Mean Corpuscular Hgb Conc. 31.7 g/dL (32.0-36.0); Monocytes # (auto) 0.7 10 ^3/uL (0-1.3); Monocytes % (auto) 4.4 % (0.0-12.0); Neutrophils # (auto) 14.1 10 ^3/uL (1.6-8.6); Neutrophils % (auto) 92.7 % (37.0-80.0); Nucleated Red Blood Cells % 0.2 %; Red Blood Cells 3.02 10^6/uL (4.0-5.20); Red Cell Distribution Width 15.3 % (11.8-14.3); White Blood Cell 15.2 10^3/uL (4.4-10.8)
[2023-06-01] MEDS: Jevity 1.2 Cal/Fiber 1 Liter GT SCH (04:00)
[2023-06-01 04:20] LABS: Alanine Aminotransferase 43 U/L (7-40); Alkaline Phosphatase 120 U/L (46-116); Anion Gap 6 (5-15); Aspartate Aminotransferase 20 U/L (13-40); BUN/Creatinine Ratio 44.8 (10.0-20.0); Blood Urea Nitrogen 26 mg/dL (9-23); Calcium 7.9 mg/dL (8.7-10.4); Carbon Dioxide 28 mmol/L (20-30); Chloride 100 mmol/L (98-107); Glucose 116 mg/dL (74-106); Potassium 3.3 mmol/L (3.5-5.1); Sodium 134 mmol/L (136-145)
[2023-06-01 04:21] LABS: Albumin 2.1 g/dL (3.2-4.8); Bilirubin, Total 0.6 mg/dL (0.2-1.0); Total Protein 5.5 g/dL (5.7-8.2)
[2023-06-01] MEDS: CEFEPIME 1GM/ 50ML 50 ML IV SCH ×3 (05:06→22:27)
[2023-06-01] MEDS: METOCLOPRAMIDE HCL 5MG/ml INJ 2ml VIAL IV SCH ×3 (05:06→22:00)
[2023-06-01] MEDS ORDERED: POTASSIUM CHL 20MEQ/100ML 100 ML IV ONE (06:00)
[2023-06-01] MEDS: BUDESONIDE (INHALATION) 0.5 MG/2 ML NEB NEB SCH ×2 (06:47→19:07)
[2023-06-01 07:07] LABS: Base Excess 3.8 mmol/L (-2.0-2.0)
[2023-06-01] MEDS ORDERED: LACTULOSE 20Gm/30ML SOLN PO SCH (10:00)
[2023-06-01] MEDS: FUROSEMIDE 20 MG/2 ML VIAL IV SCH (10:00)
[2023-06-01] MEDS: SODIUM CHLOR 0.9% PF (SALINE LOCK) 10ML VIAL/SYR IV SCH ×2 (11:54→22:21)
[2023-06-01] MEDS: PANTOPRAZOLE 40 MG/10 ML VIAL INJ IV SCH (11:54)
[2023-06-01] MEDS: MICAFUNGIN SODIUM 100 MG in SODIUM CHL 0.9% 100 ML IV SCH (11:54)
[2023-06-01] MEDS: POTASSIUM EFFERVESENT TAB 25 MEQ GT SCH (11:55)
[2023-06-01] MEDS: LINEZOLID 600MG/300ML 300 ML IV SCH ×2 (11:55→22:22)
[2023-06-01] MEDS: AMIODARONE HCL 200 MG TAB PO SCH ×2 (11:56→22:21)
[2023-06-01] MEDS: ENOXAPARIN SOD 30 MG/0.3 ML SYRINGE SC SCH (11:56)
[2023-06-01] MEDS: fentaNYL Drip 2500mCg/250mlNS 250 ML IV SCH (12:16)
[2023-06-01] MEDS: MIDAZOLAM DRIP 50 mg/50mL 50 ML IV SCH (12:45)
[2023-06-01] MEDS: NOREPINEPHRINE 8 MG/250ML KIT 250 ML IV SCH (15:00)
[2023-06-02] VITALS (107 sets, daily range): BP systolic 76–144; BP diastolic 42–68; PULSE 81–104; RESP 21–34; TEMP 97.4–98.9; O2SAT 95–100
[2023-06-02] MEDS: IPRATROPIUM BROM 0.5 MG/2.5ML INH SOL NEB SCH ×4 (00:20→18:48)
[2023-06-02] MEDS: LEVALBUTEROL HCL 1.25 MG/3 ML NEB NEB SCH ×4 (00:20→18:48)
[2023-06-02] MEDS: VASOPRESSIN 20 UNITS in SODIUM CHL 0.9% 99 ML IV SCH ×2 (01:52→12:59)
[2023-06-02] MEDS: METOCLOPRAMIDE HCL 5MG/ml INJ 2ml VIAL IV SCH ×3 (05:35→21:34)
[2023-06-02] MEDS: BUDESONIDE (INHALATION) 0.5 MG/2 ML NEB NEB SCH ×2 (06:22→19:07)
[2023-06-02 07:35] LABS: Base Excess 2.4 mmol/L (-2.0-2.0)
[2023-06-02] MEDS: CEFEPIME 1GM/ 50ML 50 ML IV SCH ×3 (08:14→21:35)
[2023-06-02] MEDS ORDERED: DIPHENOXYLATE W/ATROPINE 2.5 MG TAB PO PRN (08:15)
[2023-06-02 08:30] LABS: Hemoglobin 8.2 g/dL (12.2-16.2); White Blood Cell 15.2 10^3/uL (4.4-10.8)
[2023-06-02 08:32] LABS: Hematocrit 25.4 % (36.0-46.0); Mean Corpuscular Hemoglobin 27.7 pg (28.0-32.0); Mean Corpuscular Hgb Conc. 32.4 g/dL (32.0-36.0); Mean Corpuscular Volume 85.4 fL (80.0-100.0); Red Blood Cells 2.97 10^6/uL (4.0-5.20); Red Cell Distribution Width 15.3 % (11.8-14.3)
[2023-06-02 08:56] LABS: Basophils % (manual) 0 (0.0-2.0); Blast Cells 0; Eosinophils % (manual) 0 (0-7); Metamyelocytes % 0; Myelocytes % 0; Promyelocytes % 0; Reactive Lymphocytes 0
[2023-06-02] MEDS: POTASSIUM EFFERVESENT TAB 25 MEQ GT SCH (10:06)
[2023-06-02] MEDS: LINEZOLID 600MG/300ML 300 ML IV SCH ×2 (10:06→21:35)
[2023-06-02] MEDS: CHOLESTYRAMINE 4 GM POWDER GT SCH (10:07)
[2023-06-02] MEDS: FUROSEMIDE 20 MG/2 ML VIAL IV SCH (10:07)
[2023-06-02] MEDS: PANTOPRAZOLE 40 MG/10 ML VIAL INJ IV SCH (10:07)
[2023-06-02] MEDS: AMIODARONE HCL 200 MG TAB PO SCH ×2 (10:07→21:34)
[2023-06-02] MEDS: ENOXAPARIN SOD 30 MG/0.3 ML SYRINGE SC SCH (10:08)
[2023-06-02] MEDS: SODIUM CHLOR 0.9% PF (SALINE LOCK) 10ML VIAL/SYR IV SCH ×2 (10:08→21:34)
[2023-06-02] MEDS: fentaNYL Drip 2500mCg/250mlNS 250 ML IV SCH (10:17)
[2023-06-02 11:18] LABS: Chloride 101 mmol/L (98-107); Sodium 135 mmol/L (136-145)
[2023-06-02 11:19] LABS: Anion Gap 6 (5-15); Carbon Dioxide 28 mmol/L (20-30)
[2023-06-02 11:20] LABS: Calcium 8.1 mg/dL (8.7-10.4)
[2023-06-02 11:25] LABS: BUN/Creatinine Ratio 49.1 (10.0-20.0); Blood Urea Nitrogen 26 mg/dL (9-23); Glucose 93 mg/dL (74-106)
[2023-06-02] MEDS: MICAFUNGIN SODIUM 100 MG in SODIUM CHL 0.9% 100 ML IV SCH (12:06)
[2023-06-02] MEDS: MIDAZOLAM DRIP 50 mg/50mL 50 ML IV SCH (12:45)
[2023-06-02 13:09] LABS: Band Neutrophils % (manual) 4; Lymphocytes % (manual) 4 (10.0-50.0); Monocytes % (manual) 4 (0-12); Platelet Estimate Adequate
[2023-06-02] MEDS: NOREPINEPHRINE 8 MG/250ML KIT 250 ML IV SCH (13:47)
[2023-06-02] MEDS: PROPOFOL 100 ML IV SCH (16:15)
[2023-06-03] VITALS (110 sets, daily range): BP systolic 85–140; BP diastolic 42–66; PULSE 83–98; RESP 19–33; TEMP 97.9–98.5; O2SAT 94–100
[2023-06-03] MEDS: VASOPRESSIN 20 UNITS in SODIUM CHL 0.9% 99 ML IV SCH ×3 (00:06→22:20)
[2023-06-03] MEDS: LEVALBUTEROL HCL 1.25 MG/3 ML NEB NEB SCH ×5 (00:18→23:38)
[2023-06-03] MEDS: IPRATROPIUM BROM 0.5 MG/2.5ML INH SOL NEB SCH ×5 (00:18→23:38)
[2023-06-03 04:16] LABS: Eosinophils # (auto) 0.2 10 ^3/uL (0-0.8); Eosinophils % (auto) 1.4 % (0.0-7.0); Hematocrit 24.6 % (36.0-46.0); Hemoglobin 7.8 g/dL (12.2-16.2); Monocytes # (auto) 0.5 10 ^3/uL (0-1.3); Neutrophils # (auto) 11.3 10 ^3/uL (1.6-8.6); Nucleated Red Blood Cells % 0.7 %; White Blood Cell 12.7 10^3/uL (4.4-10.8)
[2023-06-03 04:18] LABS: Basophils # (auto) 0 10 ^3/uL (0-0.2); Basophils % (auto) 0.3 % (0.0-2.0); Lymphocytes # (auto) 0.7 10 ^3/uL (0.4-5.4); Lymphocytes % (auto) 5.8 % (10.0-50.0); Mean Corpuscular Hemoglobin 28.3 pg (28.0-32.0); Mean Corpuscular Hgb Conc. 31.6 g/dL (32.0-36.0); Mean Corpuscular Volume 89.7 fL (80.0-100.0); Monocytes % (auto) 3.8 % (0.0-12.0); Neutrophils % (auto) 88.7 % (37.0-80.0); Red Blood Cells 2.74 10^6/uL (4.0-5.20); Red Cell Distribution Width 15.6 % (11.8-14.3)
[2023-06-03 04:23] LABS: Anion Gap 6 (5-15); Calcium 7.6 mg/dL (8.7-10.4); Carbon Dioxide 27 mmol/L (20-30); Chloride 100 mmol/L (98-107); Potassium 3.8 mmol/L (3.5-5.1); Sodium 133 mmol/L (136-145)
[2023-06-03 04:29] LABS: BUN/Creatinine Ratio 40.8 (10.0-20.0); Blood Urea Nitrogen 20 mg/dL (9-23); Glucose 97 mg/dL (74-106)
[2023-06-03] MEDS: CEFEPIME 1GM/ 50ML 50 ML IV SCH ×3 (05:49→21:34)
[2023-06-03] MEDS: METOCLOPRAMIDE HCL 5MG/ml INJ 2ml VIAL IV SCH ×3 (05:49→21:34)
[2023-06-03] MEDS: BUDESONIDE (INHALATION) 0.5 MG/2 ML NEB NEB SCH ×2 (06:29→18:38)
[2023-06-03] MEDS: AMIODARONE HCL 200 MG TAB PO SCH ×2 (08:59→21:34)
[2023-06-03] MEDS: ENOXAPARIN SOD 30 MG/0.3 ML SYRINGE SC SCH (09:00)
[2023-06-03] MEDS: FUROSEMIDE 20 MG/2 ML VIAL IV SCH (09:00)
[2023-06-03] MEDS: POTASSIUM EFFERVESENT TAB 25 MEQ GT SCH (09:00)
[2023-06-03] MEDS: LINEZOLID 600MG/300ML 300 ML IV SCH ×2 (09:00→21:34)
[2023-06-03 09:12] LABS: Base Excess 3.9 mmol/L (-2.0-2.0)
[2023-06-03] MEDS: CHOLESTYRAMINE 4 GM POWDER GT SCH (11:09)
[2023-06-03] MEDS: MICAFUNGIN SODIUM 100 MG in SODIUM CHL 0.9% 100 ML IV SCH (11:09)
[2023-06-03] MEDS: SODIUM CHLOR 0.9% PF (SALINE LOCK) 10ML VIAL/SYR IV SCH ×2 (11:10→21:35)
[2023-06-03] MEDS: MIDAZOLAM DRIP 50 mg/50mL 50 ML IV SCH (11:10)
[2023-06-03] MEDS ORDERED: InsuLIN REG 1unit/0.01ml Soln (100units/ml) ONE (11:33)
[2023-06-03] MEDS: NOREPINEPHRINE 8 MG/250ML KIT 250 ML IV SCH ×2 (13:56→14:19)
[2023-06-03] MEDS: PROPOFOL 100 ML IV SCH (13:57)
[2023-06-03] MEDS: PANTOPRAZOLE 40 MG/10 ML VIAL INJ IV SCH (14:19)
[2023-06-03] MEDS: fentaNYL Drip 2500mCg/250mlNS 250 ML IV SCH (14:23)
[2023-06-04] VITALS (84 sets, daily range): BP systolic 91–148; BP diastolic 38–85; PULSE 83–96; RESP 22–38; TEMP 97.5–97.9; O2SAT 91–100
[2023-06-04 04:26] LABS: Basophils # (auto) 0 10 ^3/uL (0-0.2); Eosinophils # (auto) 0.1 10 ^3/uL (0-0.8); Hemoglobin 8.3 g/dL (12.2-16.2); Lymphocytes # (auto) 0.5 10 ^3/uL (0.4-5.4); Monocytes # (auto) 0.3 10 ^3/uL (0-1.3)
[2023-06-04 04:29] LABS: Basophils % (auto) 0.2 % (0.0-2.0); Eosinophils % (auto) 1.2 % (0.0-7.0); Hematocrit 25.1 % (36.0-46.0); Lymphocytes % (auto) 5.7 % (10.0-50.0); Mean Corpuscular Hemoglobin 28.5 pg (28.0-32.0); Mean Corpuscular Volume 86.3 fL (80.0-100.0); Neutrophils # (auto) 8.4 10 ^3/uL (1.6-8.6); Neutrophils % (auto) 89.9 % (37.0-80.0); Nucleated Red Blood Cells % 0.8 %; Red Blood Cells 2.91 10^6/uL (4.0-5.20); Red Cell Distribution Width 15.6 % (11.8-14.3); White Blood Cell 9.4 10^3/uL (4.4-10.8)
[2023-06-04 04:36] LABS: Alanine Aminotransferase 46 U/L (7-40); Albumin 1.9 g/dL (3.2-4.8); Alkaline Phosphatase 124 U/L (46-116); Anion Gap 6 (5-15); Aspartate Aminotransferase 31 U/L (13-40); BUN/Creatinine Ratio 51.2 (10.0-20.0); Blood Urea Nitrogen 21 mg/dL (9-23); Calcium 7.7 mg/dL (8.7-10.4); Carbon Dioxide 29 mmol/L (20-30); Chloride 100 mmol/L (98-107); Glucose 107 mg/dL (74-106); Potassium 3.5 mmol/L (3.5-5.1); Sodium 135 mmol/L (136-145)
[2023-06-04 04:37] LABS: Bilirubin, Total 0.5 mg/dL (0.2-1.0); Total Protein 5.2 g/dL (5.7-8.2)
[2023-06-04] MEDS: METOCLOPRAMIDE HCL 5MG/ml INJ 2ml VIAL IV SCH ×2 (06:00→14:00)
[2023-06-04] MEDS: CEFEPIME 1GM/ 50ML 50 ML IV SCH ×2 (06:03→14:36)
[2023-06-04] MEDS: BUDESONIDE (INHALATION) 0.5 MG/2 ML NEB NEB SCH ×2 (06:35→18:59)
[2023-06-04] MEDS: IPRATROPIUM BROM 0.5 MG/2.5ML INH SOL NEB SCH ×3 (06:35→18:52)
[2023-06-04] MEDS: LEVALBUTEROL HCL 1.25 MG/3 ML NEB NEB SCH ×3 (06:35→18:52)
[2023-06-04] MEDS: VASOPRESSIN 20 UNITS in SODIUM CHL 0.9% 99 ML IV SCH (07:55)
[2023-06-04] MEDS: AMIODARONE HCL 200 MG TAB PO SCH (10:17)
[2023-06-04] MEDS: POTASSIUM EFFERVESENT TAB 25 MEQ GT SCH (10:18)
[2023-06-04] MEDS: FUROSEMIDE 20 MG/2 ML VIAL IV SCH (10:18)
[2023-06-04] MEDS: LINEZOLID 600MG/300ML 300 ML IV SCH (10:18)
[2023-06-04] MEDS: SODIUM CHLOR 0.9% PF (SALINE LOCK) 10ML VIAL/SYR IV SCH (10:18)
[2023-06-04] MEDS: PANTOPRAZOLE 40 MG/10 ML VIAL INJ IV SCH (10:18)
[2023-06-04] MEDS: MICAFUNGIN SODIUM 100 MG in SODIUM CHL 0.9% 100 ML IV SCH (10:19)
[2023-06-04] MEDS: ENOXAPARIN SOD 30 MG/0.3 ML SYRINGE SC SCH (10:19)
[2023-06-04] MEDS: MIDAZOLAM DRIP 50 mg/50mL 50 ML IV SCH (12:45)
[2023-06-04] MEDS: PROPOFOL 100 ML IV SCH (14:55)
[2023-06-04] MEDS: NOREPINEPHRINE 8 MG/250ML KIT 250 ML IV SCH (15:00)
[2023-06-04] MEDS: fentaNYL Drip 2500mCg/250mlNS 250 ML IV SCH (19:14)
== END 2023-06-04 19:30 | DRG 5 ==
LOC: EDBD 13:28 → ER 13:28 → TELE 18:18 → ICU WEST 05-13 19:45
PROVIDERS: ADMIT Internal Medicine; ATTEND Internal Medicine
PROC: 5A1955Z Respiratory Ventilation, Greater than 96 Consecutive Hours (ICD-10-PCS; principal; 2023-05-11)
PROC: 0BH17EZ Insertion of Endotracheal Airway into Trachea, Via Natural or Artificial Opening (ICD-10-PCS; 2023-05-11)
PROC: 02HV33Z Insertion of Infusion Device into Superior Vena Cava, Percutaneous Approach (ICD-10-PCS; 2023-05-17)
PROC: B548ZZA Ultrasonography of Superior Vena Cava, Guidance (ICD-10-PCS; 2023-05-17)
PROC: 30233N1 Transfusion of Nonautologous Red Blood Cells into Peripheral Vein, Percutaneous Approach (ICD-10-PCS; 2023-05-23)
PROC: 0B110Z4 Bypass Trachea to Cutaneous, Open Approach (ICD-10-PCS; 2023-05-31)
DX: A41.02 Sepsis due to Methicillin resistant Staphylococcus aureus (principal); N17.0 Acute kidney failure with tubular necrosis; R65.21 Severe sepsis with septic shock; G93.41 Metabolic encephalopathy; J10.00 Influenza due to other identified influenza virus with unspecified type of pneumonia; J18.9 Pneumonia, unspecified organism; J90 Pleural effusion, not elsewhere classified; I47.10 Supraventricular tachycardia, unspecified; Z20.822 Contact with and (suspected) exposure to COVID-19; J96.01 Acute respiratory failure with hypoxia; J96.02 Acute respiratory failure with hypercapnia; I48.91 Unspecified atrial fibrillation; N30.90 Cystitis, unspecified without hematuria; J98.11 Atelectasis; Z79.899 Other long term (current) drug therapy; Z87.442 Personal history of urinary calculi; Z99.11 Dependence on respirator [ventilator] status
CPT/HCPCS: 31500; 36415; 36556; 36569; 36600; 70450; 71045; 74176; 76705; 80048; 80053; 80061; 80202; 81001; 82805; 83036; 83605; 83735; 83880; 84443; 84484; 85007; 85025; 85027; 85610; 85730; 86850; 86900; 86901; 86920; 87040; 87070; 87077; 87081; 87086; 87088; 87147; 87186; 87205; 87426; 87804; 93005; 93306; 94002; 94003; 94640; 99152; 99291; A4605; C9113; G0378; G9035; J0696; J1450; J1756; J1815; J2185; J2248; J2250; J2704; J3480; J7060